=== PATIENT | male | born 1935 | race Caucasian/White ===

== ENCOUNTER 2020-04-15 09:51 | Emergency (ER) | payer MEDICARE, MEDICAID ==
[~2020-04-15] VITALS: Ht 172.7 cm; Wt 91.0 kg
[~2020-04-15 09:51] MED LIST: ASPI-1158 PO; ATOR10TA69 PO; BRIM.2 BOTHEYE; DOCU-150 PO; DORZ10DR12 BOTHEYE; FERR-63 PO; INSLAN SQ; TAMS0.4C31 PO; TOPUD PO
[2020-04-15] MEDS ORDERED: ACETAMINOPHEN 325MG TABLET PO STA (10:03)
[2020-04-15] MEDS ORDERED: ASPIRIN 81MG TABLET PO ONE (10:15)
[2020-04-15] MEDS ORDERED: NITROGLYCERIN 0.4MG TABLET SL SL PRN (10:15)
[2020-04-15 10:42] LABS: CHLORIDE 104 mEq/L (98-107)
[2020-04-15 10:44] LABS: BASOPHILS % 0.6 % (0.0-2.0); EOSINOPHILS % 0.5 % (0.0-5.0); HEMATOCRIT. 38.9 % (42.0-52.0); HEMOGLOBIN. 13.1 g/dL (14.0-18.0); LYMPHOCYTES % 17.2 % (20.0-50.0); MEAN CORPUSCULAR HEMOGLOBIN 31.1 pg (28.0-32.0); MEAN CORPUSCULAR VOLUME 92.6 fL (80.0-94.0); MEAN PLATELET VOLUME 8.7 fl (7.4-10.4); MONOCYTES % 5.4 % (2.0-8.0); NEUTROPHILS % 76.3 % (40.0-76.0); PLATELET 225 x1000/uL (130-400)
[2020-04-15 10:45] LABS: PROTHROMBIN TIME 10.7 sec (9.6-11.0)
[2020-04-15 14:30] VITALS: BP 169/76
== END 2020-04-15 14:45 | disposition home or self-care (01) ==
LOC: ER 09:51
DX: R51.9 Headache, unspecified (principal); E11.9 Type 2 diabetes mellitus without complications; E78.00 Pure hypercholesterolemia, unspecified; I10 Essential (primary) hypertension; Z79.82 Long term (current) use of aspirin; Z79.4 Long term (current) use of insulin; Z89.511 Acquired absence of right leg below knee; W01.190A Fall on same level from slipping, tripping and stumbling with subsequent striking against furniture, initial encounter; Y93.89 Activity, other specified; Y92.013 Bedroom of single-family (private) house as the place of occurrence of the external cause
CPT/HCPCS: 36415; 71045; 80053; 83880; 84484; 85025; 93005; 99285

== ENCOUNTER 2020-09-14 15:42 | Inpatient (IN) | payer MEDICARE, MEDICAID ==
[~2020-09-14] VITALS: Ht 172.7 cm; Wt 99.8 kg
[~2020-09-14 15:42] MED LIST changes: -ASPI-1158 PO; +ASPI-1406 PO
[2020-09-14 18:23] LABS: BASOPHILS % 0.5 % (0.0-2.0); EOSINOPHILS % 0.3 % (0.0-5.0); HEMATOCRIT. 32.8 % (42.0-52.0); HEMOGLOBIN. 11.1 g/dL (14.0-18.0); LYMPHOCYTES % 25.2 % (20.0-50.0); MEAN CORPUSCULAR HEMOGLOBIN 31.1 pg (28.0-32.0); MEAN CORPUSCULAR VOLUME 91.7 fL (80.0-94.0); MEAN PLATELET VOLUME 7.3 fl (7.4-10.4); MONOCYTES % 7.4 % (2.0-8.0); NEUTROPHILS % 66.6 % (40.0-76.0); PLATELET 392 x1000/uL (130-400); RED BLOOD CELL COUNT 3.57 mill/uL (4.7-6.1); RED CELL DISTRIBUTION WIDTH 13.8 % (11.6-14.6)
[2020-09-14 18:29] LABS: CHLORIDE 106 mEq/L (98-107)
[2020-09-14] MEDS ORDERED: PIPERACILLIN SODIUM/TAZOBACTAM 4.5 G in DEXT 5% WATER 100 ML IV SCH (19:00)
[2020-09-14 22:10] VITALS: BP 181/90
[2020-09-14 22:20] VITALS: BP 181/90
[2020-09-14] MEDS ORDERED: TRAMADOL 50MG TABLET PO PRN (23:15)
[2020-09-14] MEDS ORDERED: DEXTROSE 50% WATER 50ML SYRINGE IV PRN (23:15)
[2020-09-14] MEDS ORDERED: INSULIN GLARGINE UD 100 UNITS/ML SYR SUBCUT SCH (23:30)
[2020-09-15] MEDS: AMLODIPINE 10MG TABLET PO SCH ×2 (00:21→11:00)
[2020-09-15] MEDS: TAMSULOSIN HCL 0.4MG SR CAPSULE PO SCH ×2 (00:22→10:59)
[2020-09-15] MEDS: LOSARTAN POTASSIUM 50 MG TABLET PO SCH ×2 (00:22→10:59)
[2020-09-15] MEDS: DOCUSATE SODIUM SUGAR FREE 100MG/10ML UDC PO SCH ×2 (00:23→10:59)
[2020-09-15] MEDS: INSULIN LISPRO 100 UNITS/ML SUBCUT SCH ×4 (01:10→20:41)
[2020-09-15 04:00] VITALS: BP 151/71
[2020-09-15] MEDS ORDERED: PIPERACILLIN/TAZOBACTAM 3.375 G in DEXT 5% WATER 50 ML IV SCH (04:00)
[2020-09-15] MEDS ORDERED: PIPERACILLIN/TAZOBACTAM 3.375GM/50ML PREMIX IV ONE (06:00)
[2020-09-15] MEDS: BLOOD SUGAR DIAGNOSTIC STRIP TEST SCH ×4 (06:39→20:25)
[2020-09-15 08:00] VITALS: BP 138/67
[2020-09-15] MEDS ORDERED: BRIMONIDINE 0.2% OPHTH DROPS 5ML BOTHEYE ONE (09:00)
[2020-09-15] MEDS: TIMOLOL MALEATE 0.25% OPHTH DROPS 5ML EACHEYE SCH (11:06)
[2020-09-15 12:00] VITALS: BP 103/58
[2020-09-15] MEDS: PIPERACILLIN/TAZOBACTAM 3.375 G in DEXT 5% WATER 100 ML IV SCH ×3 (12:41→23:33)
[2020-09-15 16:00] VITALS: BP 149/66
[2020-09-15 20:00] VITALS: BP 133/57
[2020-09-15] MEDS: ATORVASTATIN CALCIUM 20MG TABLET PO SCH (20:25)
[2020-09-15] MEDS ORDERED: IOHEXOL-350 100 ML BOTTLE ONE (20:53)
[2020-09-15] MEDS: INSULIN GLARGINE UD 100 UNITS/ML SYR SUBCUT SCH (23:38)
[2020-09-16] VITALS: BP 151/69
[2020-09-16 04:00] VITALS: BP 156/72
[2020-09-16] MEDS: PIPERACILLIN/TAZOBACTAM 3.375 G in DEXT 5% WATER 100 ML IV SCH ×3 (06:00→18:01)
[2020-09-16] MEDS: BLOOD SUGAR DIAGNOSTIC STRIP TEST SCH ×2 (06:29→21:00)
[2020-09-16] MEDS ORDERED: HEPARIN SODIUM 1,000 UNIT/1ML VIAL IV ONE (07:26)
[2020-09-16 08:00] VITALS: BP 141/67
[2020-09-16] MEDS ORDERED: LIDOCAINE HCL 1% 20ML VIAL (Pyxis) INJ ONE ×2 (09:44→14:07)
[2020-09-16] MEDS ORDERED: IOHEXOL-300 100 ML BOTTLE ONE ×2 (09:44→11:16)
[2020-09-16] MEDS ORDERED: IODIXANOL 320MG/ML 100 ML BOTTLE IV ONE ×2 (09:45→11:17)
[2020-09-16] MEDS ORDERED: MIDAZOLAM HCL 2 MG/2 ML VIAL ONE (09:59)
[2020-09-16] MEDS ORDERED: FENTANYL CITRATE/PF 50MCG/ML 2ML VIAL ONE (09:59)
[2020-09-16 12:00] VITALS: BP 144/69
[2020-09-16 16:00] VITALS: BP 150/75
[2020-09-16 20:00] VITALS: BP 143/70
[2020-09-16] MEDS: ATORVASTATIN CALCIUM 20MG TABLET PO SCH (22:49)
[2020-09-16] MEDS: ENOXAPARIN 100MG/ML SYR SUBCUT SCH ×2 (22:49→22:59)
[2020-09-16] MEDS: INSULIN LISPRO 100 UNITS/ML SUBCUT SCH (22:54)
[2020-09-16] MEDS: INSULIN GLARGINE UD 100 UNITS/ML SYR SUBCUT SCH (22:54)
[2020-09-17] VITALS: BP 152/68
[2020-09-17] MEDS: PIPERACILLIN/TAZOBACTAM 3.375 G in DEXT 5% WATER 100 ML IV SCH ×4 (00:15→23:12)
[2020-09-17 04:00] VITALS: BP 137/68
[2020-09-17] MEDS: BLOOD SUGAR DIAGNOSTIC STRIP TEST SCH ×3 (06:36→21:00)
[2020-09-17 06:54] LABS: INR 1.1; PROTHROMBIN TIME 11.9 sec (9.6-11.0)
[2020-09-17 07:07] LABS: BASOPHILS % 0.3 % (0.0-2.0); EOSINOPHILS % 0.6 % (0.0-5.0); HEMATOCRIT. 29.4 % (42.0-52.0); LYMPHOCYTES % 24.4 % (20.0-50.0); MEAN CORPUSCULAR HEMOGLOBIN 30.7 pg (28.0-32.0); MEAN CORPUSCULAR VOLUME 90.6 fL (80.0-94.0); MEAN PLATELET VOLUME 7.7 fl (7.4-10.4); NEUTROPHILS % 63.7 % (40.0-76.0); PLATELET 394 x1000/uL (130-400); RED BLOOD CELL COUNT 3.25 mill/uL (4.7-6.1); RED CELL DISTRIBUTION WIDTH 14.1 % (11.6-14.6)
[2020-09-17] MEDS ORDERED: SODIUM CHLORIDE 0.45% 1,000 ML IV SCH (07:15)
[2020-09-17] MEDS: INSULIN LISPRO 100 UNITS/ML SUBCUT SCH ×3 (07:50→21:00)
[2020-09-17 07:53] LABS: CHLORIDE 108 mEq/L (98-107)
[2020-09-17 08:00] VITALS: BP 166/78
[2020-09-17] MEDS: ENOXAPARIN 100MG/ML SYR SUBCUT SCH ×2 (09:00→23:00)
[2020-09-17] MEDS ORDERED: POTASSIUM CHLORIDE 20MEQ TABLET SR PO SCH (09:30)
[2020-09-17] MEDS: LOSARTAN POTASSIUM 50 MG TABLET PO SCH (09:45)
[2020-09-17] MEDS: AMLODIPINE 10MG TABLET PO SCH (09:46)
[2020-09-17] MEDS: TAMSULOSIN HCL 0.4MG SR CAPSULE PO SCH (09:47)
[2020-09-17] MEDS: DOCUSATE SODIUM SUGAR FREE 100MG/10ML UDC PO SCH (09:48)
[2020-09-17] MEDS: TIMOLOL MALEATE 0.25% OPHTH DROPS 5ML EACHEYE SCH (09:51)
[2020-09-17] MEDS ORDERED: KCL 20MEQ/100ML PREMIX 100 ML IV SCH (10:00)
[2020-09-17] MEDS: DEXT 5%/0.45% NACL 1000ML 1,000 ML IV SCH (10:42)
[2020-09-17] MEDS ORDERED: GENTAMICIN SULF 40MG/ML 2ML VIAL ONE (12:44)
[2020-09-17] MEDS ORDERED: LIDOCAINE HCL 1% 20ML VIAL (Pyxis) INJ ONE (12:44)
[2020-09-17] MEDS ORDERED: POLYMYXIN B SULFATE 500000 UNITS/VIAL ONE (12:45)
[2020-09-17] MEDS ORDERED: BUPIVACAINE HCL/PF 0.5% (5MG/ML) 10ML ONE (12:45)
[2020-09-17] MEDS ORDERED: DESMOPRESSIN ACETATE 4MCG/ML AMP ONE (12:45)
[2020-09-17 14:28] LABS: BASOPHILS % 0.4 % (0.0-2.0); EOSINOPHILS % 0.9 % (0.0-5.0); HEMOGLOBIN. 10.3 g/dL (14.0-18.0); LYMPHOCYTES % 23.5 % (20.0-50.0); MEAN CORPUSCULAR HEMOGLOBIN 31.4 pg (28.0-32.0); MEAN CORPUSCULAR VOLUME 91.1 fL (80.0-94.0); MEAN PLATELET VOLUME 7.5 fl (7.4-10.4); MONOCYTES % 10.1 % (2.0-8.0); NEUTROPHILS % 65.1 % (40.0-76.0); PLATELET 370 x1000/uL (130-400); RED BLOOD CELL COUNT 3.29 mill/uL (4.7-6.1); RED CELL DISTRIBUTION WIDTH 13.9 % (11.6-14.6)
[2020-09-17 14:37] LABS: CHLORIDE 108 mEq/L (98-107)
[2020-09-17] MEDS ORDERED: MIDAZOLAM HCL 2 MG/2 ML VIAL ONE (15:28)
[2020-09-17] MEDS ORDERED: HYDROMORPHONE HCL/PF 2MG/ML (OR) ONE (15:28)
[2020-09-17] MEDS ORDERED: MEPERIDINE HCL/PF 25MG/ML CPJ IV PRN (15:30)
[2020-09-17] MEDS ORDERED: LABETALOL 5MG/ML SYR 20 MG/4 ML SYRINGE IV PRN (15:30)
[2020-09-17] MEDS ORDERED: HYDROMORPHONE HCL/PF 2MG/ML CPJ IV PRN (15:30)
[2020-09-17] MEDS ORDERED: ONDANSETRON HCL 4MG/2ML INJ IV PRN (15:30)
[2020-09-17] MEDS ORDERED: BACITRACIN 15GM TUBE TOP ONE (16:08)
[2020-09-17 18:16] LABS: BASOPHILS % 0.4 % (0.0-2.0); EOSINOPHILS % 1.1 % (0.0-5.0); HEMATOCRIT. 27.8 % (42.0-52.0); HEMOGLOBIN. 9.3 g/dL (14.0-18.0); LYMPHOCYTES % 25.7 % (20.0-50.0); MEAN CORPUSCULAR HEMOGLOBIN 30.7 pg (28.0-32.0); MEAN CORPUSCULAR VOLUME 91.7 fL (80.0-94.0); MEAN PLATELET VOLUME 7.4 fl (7.4-10.4); NEUTROPHILS % 62.8 % (40.0-76.0); PLATELET 364 x1000/uL (130-400); RED BLOOD CELL COUNT 3.03 mill/uL (4.7-6.1)
[2020-09-17 18:31] LABS: CHLORIDE 110 mEq/L (98-107)
[2020-09-17] MEDS ORDERED: MAGNESIUM 2 G PREMIX 50 ML IV NR (20:00)
[2020-09-17] MEDS: ATORVASTATIN CALCIUM 20MG TABLET PO SCH (21:00)
[2020-09-17 22:45] VITALS: BP 122/59
[2020-09-17] MEDS: INSULIN GLARGINE UD 100 UNITS/ML SYR SUBCUT SCH (23:00)
[2020-09-18] VITALS: BP 124/61
[2020-09-18] MEDS ORDERED: CEFTRIAXONE 2 G in DEXTROSE 5% WATER 50 ML IV SCH (01:00)
[2020-09-18 04:00] VITALS: BP 122/58
[2020-09-18] MEDS: BLOOD SUGAR DIAGNOSTIC STRIP TEST SCH ×3 (05:37→17:10)
[2020-09-18] MEDS: DEXT 5%/0.45% NACL 1000ML 1,000 ML IV SCH (06:34)
[2020-09-18] MEDS: INSULIN LISPRO 100 UNITS/ML SUBCUT SCH ×3 (06:37→17:40)
[2020-09-18 08:00] VITALS: BP 106/58
[2020-09-18] MEDS: AMLODIPINE 10MG TABLET PO SCH (09:00)
[2020-09-18] MEDS: LOSARTAN POTASSIUM 50 MG TABLET PO SCH (09:00)
[2020-09-18] MEDS: TAMSULOSIN HCL 0.4MG SR CAPSULE PO SCH (09:43)
[2020-09-18] MEDS: DOCUSATE SODIUM SUGAR FREE 100MG/10ML UDC PO SCH (09:43)
[2020-09-18] MEDS: TIMOLOL MALEATE 0.25% OPHTH DROPS 5ML EACHEYE SCH (09:44)
[2020-09-18 12:00] VITALS: BP 107/53
[2020-09-18 16:00] VITALS: BP 149/70
== END 2020-09-18 20:30 | disposition home health service (06) | DRG 314 ==
LOC: ER 15:42 → 6EST 19:48 → EDBEDREQTM 19:54 → EDBEDREQ 19:54 → ENRESERV 21:01 → 8WST 09-17 22:29
PROVIDERS: ADMIT Internal Medicine; ATTEND Internal Medicine
PROC: 047L3ZZ Dilation of Left Femoral Artery, Percutaneous Approach (ICD-10-PCS; principal; 2020-09-16)
PROC: B41G1ZZ Fluoroscopy of Left Lower Extremity Arteries using Low Osmolar Contrast (ICD-10-PCS; 2020-09-16)
PROC: B41F1ZZ Fluoroscopy of Right Lower Extremity Arteries using Low Osmolar Contrast (ICD-10-PCS; 2020-09-16)
PROC: 04CQ3ZZ Extirpation of Matter from Left Anterior Tibial Artery, Percutaneous Approach (ICD-10-PCS; 2020-09-16)
PROC: 02HV33Z Insertion of Infusion Device into Superior Vena Cava, Percutaneous Approach (ICD-10-PCS; 2020-09-16)
PROC: B548ZZA Ultrasonography of Superior Vena Cava, Guidance (ICD-10-PCS; 2020-09-16)
PROC: 0QBM0ZZ Excision of Left Tarsal, Open Approach (ICD-10-PCS; 2020-09-17)
DX: E11.621 Type 2 diabetes mellitus with foot ulcer (principal); M86.172 Other acute osteomyelitis, left ankle and foot; E46 Unspecified protein-calorie malnutrition; I82.401 Acute embolism and thrombosis of unspecified deep veins of right lower extremity; E11.52 Type 2 diabetes mellitus with diabetic peripheral angiopathy with gangrene; E11.40 Type 2 diabetes mellitus with diabetic neuropathy, unspecified; I48.91 Unspecified atrial fibrillation; I70.92 Chronic total occlusion of artery of the extremities; L97.429 Non-pressure chronic ulcer of left heel and midfoot with unspecified severity; I10 Essential (primary) hypertension; E66.9 Obesity, unspecified; N21.0 Calculus in bladder; N40.0 Benign prostatic hyperplasia without lower urinary tract symptoms; D64.9 Anemia, unspecified; E11.69 Type 2 diabetes mellitus with other specified complication; I25.10 Atherosclerotic heart disease of native coronary artery without angina pectoris; M19.90 Unspecified osteoarthritis, unspecified site; E87.6 Hypokalemia; Z20.822 Contact with and (suspected) exposure to COVID-19; F03.90 Unspecified dementia, unspecified severity, without behavioral disturbance, psychotic disturbance, mood disturbance, and anxiety; L02.612 Cutaneous abscess of left foot; Z86.73 Personal history of transient ischemic attack (TIA), and cerebral infarction without residual deficits; Z68.33 Body mass index [BMI] 33.0-33.9, adult; Z89.511 Acquired absence of right leg below knee; Z99.3 Dependence on wheelchair; Z79.01 Long term (current) use of anticoagulants
CPT/HCPCS: 36415; 37229; 71045; 73630; 73721; 75635; 76937; 80048; 80053; 82962; 83036; 83735; 85025; 85347; 87070; 87075; 87077; 87186; 87426; 93005; 93922; 93970; 97022; 97162; 99291; C1725; C1769; J0696; J1170; J1580; J1644; J1650; J1815; J2250; J2543; J2597; J3010; J3475; J3480; J3490; J7040; J7060; Q9967

== ENCOUNTER 2020-10-15 12:48 | Inpatient (IN) | payer MEDICARE, MEDICAID ==
[~2020-10-15] VITALS: Ht 172.7 cm; Wt 97.1 kg
[2020-10-15 14:17] LABS: BASOPHILS % 0.6 % (0.0-2.0); EOSINOPHILS % 1.7 % (0.0-5.0); HEMATOCRIT. 34.9 % (42.0-52.0); HEMOGLOBIN. 11.7 g/dL (14.0-18.0); LYMPHOCYTES % 35.3 % (20.0-50.0); MEAN CORPUSCULAR HEMOGLOBIN 31.7 pg (28.0-32.0); MEAN CORPUSCULAR VOLUME 94.1 fL (80.0-94.0); MEAN PLATELET VOLUME 8.6 fl (7.4-10.4); MONOCYTES % 6.8 % (2.0-8.0); NEUTROPHILS % 55.6 % (40.0-76.0); PLATELET 259 x1000/uL (130-400); RED BLOOD CELL COUNT 3.71 mill/uL (4.7-6.1); RED CELL DISTRIBUTION WIDTH 16.9 % (11.6-14.6)
[2020-10-15 14:25] LABS: CHLORIDE 105 mEq/L (98-107)
[2020-10-15 14:26] LABS: PROTHROMBIN TIME 10.4 sec (9.6-11.0)
[2020-10-15] MEDS ORDERED: VANCOMYCIN 1 G PREMIX 200 ML IV ONE (14:30)
[2020-10-15] MEDS ORDERED: PIPERACILLIN/TAZ 3.375G PREMIX 50 ML IV ONE (14:30)
[2020-10-15] MEDS ORDERED: HYDROCODONE/ACETAMINOPHEN 10/325MG TABLET PO PRN (17:15)
[2020-10-15] MEDS ORDERED: DOCUSATE SODIUM 100MG CAPSULE PO PRN (17:15)
[2020-10-15] MEDS ORDERED: ACETAMINOPHEN 325MG TABLET PO PRN (17:15)
[2020-10-15] MEDS ORDERED: HYDROCODONE/ACETAMINOPHEN 5/325MG TABLET PO PRN (17:15)
[2020-10-15] MEDS ORDERED: ONDANSETRON HCL 4MG/2ML INJ IV PRN (17:15)
[2020-10-15] MEDS: LORAZEPAM 0.5MG TABLET PO PRN (19:54)
[2020-10-15 22:00] VITALS: BP 187/102
[2020-10-15] MEDS: PIPERACILLIN/TAZOBACTAM 3.375 G in DEXT 5% WATER 100 ML IV SCH (22:00)
[2020-10-15] MEDS ORDERED: PIPERACILLIN/TAZOBACTAM 3.375 G/VIAL IV SCH (22:00)
[2020-10-15] MEDS: CLONIDINE 0.1MG TABLET PO PRN (22:35)
[2020-10-15] MEDS ORDERED: PNEUMOCOCCAL 23-VAL P-SAC VAC 0.5 ML IM ONE (23:45)
[2020-10-16] VITALS: BP 175/89
[2020-10-16] MEDS: LORAZEPAM 0.5MG TABLET PO PRN ×2 (00:32→04:38)
[2020-10-16 04:00] VITALS: BP 172/96
[2020-10-16] MEDS: CLONIDINE 0.1MG TABLET PO PRN (04:38)
[2020-10-16] MEDS: PIPERACILLIN/TAZOBACTAM 3.375 G in DEXT 5% WATER 100 ML IV SCH ×4 (06:07→23:30)
[2020-10-16] MEDS: BLOOD SUGAR DIAGNOSTIC STRIP TEST SCH ×4 (06:31→20:32)
[2020-10-16 07:06] LABS: BASOPHILS % 0.5 % (0.0-2.0); EOSINOPHILS % 0.1 % (0.0-5.0); HEMATOCRIT. 33.5 % (42.0-52.0); HEMOGLOBIN. 11.3 g/dL (14.0-18.0); LYMPHOCYTES % 20.8 % (20.0-50.0); MEAN CORPUSCULAR HEMOGLOBIN 31.5 pg (28.0-32.0); MEAN CORPUSCULAR VOLUME 93.2 fL (80.0-94.0); MEAN PLATELET VOLUME 8.4 fl (7.4-10.4); MONOCYTES % 4.8 % (2.0-8.0); NEUTROPHILS % 73.8 % (40.0-76.0); PLATELET 268 x1000/uL (130-400); RED CELL DISTRIBUTION WIDTH 16.2 % (11.6-14.6)
[2020-10-16 07:15] LABS: CHLORIDE 103 mEq/L (98-107)
[2020-10-16] MEDS: INSULIN LISPRO 100 UNITS/ML SUBCUT SCH ×4 (07:50→21:42)
[2020-10-16 08:00] VITALS: BP 125/74
[2020-10-16] MEDS ORDERED: HEPARIN 25,000 UNITS PREMIX 250 ML IV SCH (10:15)
[2020-10-16] MEDS ORDERED: BRIMONIDINE 0.2% OPHTH DROPS 5ML BOTHEYE SCH (11:30)
[2020-10-16] MEDS ORDERED: BACITRACIN 15GM TUBE TOP ONE (11:41)
[2020-10-16] MEDS ORDERED: THROMBIN (BOVINE) 5000 UNITS/VIAL TOP ONE (11:41)
[2020-10-16] MEDS ORDERED: LIDOCAINE HCL 1% 20ML VIAL (Pyxis) INJ ONE (11:41)
[2020-10-16] MEDS ORDERED: HEPARIN SODIUM 1,000 UNIT/1ML VIAL IV ONE (11:42)
[2020-10-16] MEDS ORDERED: BUPIVACAINE HCL/PF 0.5% (5MG/ML) 10ML ONE (11:42)
[2020-10-16] MEDS ORDERED: POLYMYXIN B SULFATE 500000 UNITS/VIAL ONE (11:42)
[2020-10-16] MEDS ORDERED: AMLODIPINE 5MG TABLET PO SCH (12:00)
[2020-10-16] MEDS ORDERED: MORPHINE SULFATE 4 MG/ML CPJ (NOT FOR IM USE) IV PRN (12:00)
[2020-10-16] MEDS ORDERED: PROPOFOL 200MG/20ML VIAL IV ONE (12:12)
[2020-10-16] MEDS ORDERED: PHENYLEPHRINE HCL 10 MG/ML 1ML (IV VIAL) IV ONE (12:15)
[2020-10-16] MEDS ORDERED: SODIUM CHLORIDE 0.9% 10ML VIAL ONE ×2 (12:33→12:46)
[2020-10-16] MEDS ORDERED: HEPARIN 1000 UNITS/ML 10ML ONE (12:37)
[2020-10-16] MEDS ORDERED: FENTANYL CITRATE/PF 50MCG/ML 2ML VIAL ONE (12:38)
[2020-10-16] MEDS ORDERED: ONDANSETRON HCL 4MG/2ML INJ ONE (12:46)
[2020-10-16] MEDS ORDERED: HYDROMORPHONE HCL/PF 2MG/ML CPJ IV PRN (13:30)
[2020-10-16] MEDS ORDERED: EPHEDRINE SULFATE 50MG/ML VIAL ONE ×2 (13:37→13:40)
[2020-10-16] MEDS ORDERED: ALBUMIN HUMAN 12.5G/250ML (5%) IV ONE (13:41)
[2020-10-16] MEDS ORDERED: VANCOMYCIN 1500MG in DEXTROSE 5% WATER 250ML IV SCH (14:30)
[2020-10-16 16:00] VITALS: BP 136/71
[2020-10-16] MEDS: VANCOMYCIN 1 G PREMIX 200 ML IV SCH (16:05)
[2020-10-16] MEDS: DILTIAZEM HCL 60MG TABLET PO SCH ×2 (17:59→21:41)
[2020-10-16] MEDS: FERROUS SULFATE 325MG TABLET PO SCH (17:59)
[2020-10-16 20:00] VITALS: BP 142/70
[2020-10-16] MEDS: BRIMONIDINE 0.2% OPHTH DROPS 5ML BOTHEYE SCH (20:04)
[2020-10-16] MEDS: ATORVASTATIN CALCIUM 10MG TABLET PO SCH (20:05)
[2020-10-16] MEDS: DORZOLAM/TIMOLOL 2.23/0.68% OPHTH DROPS 10ML BOTHEYE SCH (20:05)
[2020-10-16] MEDS: INSULIN GLARGINE UD 100 UNITS/ML SYR SUBCUT SCH (21:42)
[2020-10-17] VITALS: BP 140/74
[2020-10-17 04:00] VITALS: BP 172/74
[2020-10-17] MEDS: CLONIDINE 0.1MG TABLET PO PRN (04:52)
[2020-10-17] MEDS: VANCOMYCIN 1 G PREMIX 200 ML IV SCH (05:00)
[2020-10-17 05:30] LABS: CHLORIDE 107 mEq/L (98-107)
[2020-10-17] MEDS: PIPERACILLIN/TAZOBACTAM 3.375 G in DEXT 5% WATER 100 ML IV SCH ×3 (05:56→17:36)
[2020-10-17] MEDS: DILTIAZEM HCL 60MG TABLET PO SCH ×3 (05:58→22:37)
[2020-10-17 06:49] LABS: BASOPHILS % 0.3 % (0.0-2.0); EOSINOPHILS % 0.4 % (0.0-5.0); HEMATOCRIT. 34.2 % (42.0-52.0); HEMOGLOBIN. 11.4 g/dL (14.0-18.0); LYMPHOCYTES % 18.4 % (20.0-50.0); MEAN CORPUSCULAR HEMOGLOBIN 32.2 pg (28.0-32.0); MEAN CORPUSCULAR VOLUME 96.8 fL (80.0-94.0); MEAN PLATELET VOLUME 8.7 fl (7.4-10.4); MONOCYTES % 7.9 % (2.0-8.0); PLATELET 232 x1000/uL (130-400); RED BLOOD CELL COUNT 3.53 mill/uL (4.7-6.1); RED CELL DISTRIBUTION WIDTH 16.8 % (11.6-14.6)
[2020-10-17] MEDS: BLOOD SUGAR DIAGNOSTIC STRIP TEST SCH ×4 (07:24→20:32)
[2020-10-17] MEDS: INSULIN LISPRO 100 UNITS/ML SUBCUT SCH ×4 (07:50→22:54)
[2020-10-17 08:00] VITALS: BP 161/79
[2020-10-17] MEDS ORDERED: DORZOLAM/TIMOLOL 2.23/0.68% OPHTH DROPS 10ML BOTHEYE SCH (09:00)
[2020-10-17] MEDS: FERROUS SULFATE 325MG TABLET PO SCH ×2 (09:12→17:36)
[2020-10-17] MEDS: TAMSULOSIN HCL 0.4MG SR CAPSULE PO SCH (09:13)
[2020-10-17] MEDS: BRIMONIDINE 0.2% OPHTH DROPS 5ML BOTHEYE SCH ×2 (09:13→22:37)
[2020-10-17] MEDS: DORZOLAM/TIMOLOL 2.23/0.68% OPHTH DROPS 10ML BOTHEYE SCH ×2 (09:13→22:37)
[2020-10-17 12:00] VITALS: BP 162/75
[2020-10-17 16:00] VITALS: BP 187/87
[2020-10-17 20:00] VITALS: BP 163/80
[2020-10-17] MEDS: ATORVASTATIN CALCIUM 10MG TABLET PO SCH (22:37)
[2020-10-17] MEDS: INSULIN GLARGINE UD 100 UNITS/ML SYR SUBCUT SCH (22:54)
[2020-10-18] VITALS (48 sets, daily range): BP systolic 78–172; BP diastolic 47–88
[2020-10-18] MEDS: VANCOMYCIN 1 G PREMIX 200 ML IV SCH ×2 (00:47→17:55)
[2020-10-18] MEDS: PIPERACILLIN/TAZOBACTAM 3.375 G in DEXT 5% WATER 100 ML IV SCH ×4 (01:33→17:55)
[2020-10-18] MEDS: CLONIDINE 0.1MG TABLET PO PRN (02:08)
[2020-10-18] MEDS: BLOOD SUGAR DIAGNOSTIC STRIP TEST SCH ×4 (06:05→21:04)
[2020-10-18] MEDS: DILTIAZEM HCL 60MG TABLET PO SCH ×3 (07:01→22:00)
[2020-10-18] MEDS ORDERED: SUCCINYLCHOLINE CHLORIDE 200MG/10ML IV ONE (07:39)
[2020-10-18] MEDS ORDERED: ETOMIDATE 2MG/ML 10ML VIAL IV ONE (07:39)
[2020-10-18] MEDS: INSULIN LISPRO 100 UNITS/ML SUBCUT SCH ×3 (07:50→21:03)
[2020-10-18] MEDS ORDERED: EPINEPHRINE 0.1MG/ML (1:10,000) 10ML SYR ONE (08:18)
[2020-10-18] MEDS ORDERED: ATROPINE SULFATE 1MG/10ML SYR ONE (08:18)
[2020-10-18 08:55] LABS: CHLORIDE 104 mEq/L (98-107)
[2020-10-18] MEDS: DORZOLAM/TIMOLOL 2.23/0.68% OPHTH DROPS 10ML BOTHEYE SCH ×2 (09:59→21:04)
[2020-10-18] MEDS: BRIMONIDINE 0.2% OPHTH DROPS 5ML BOTHEYE SCH ×2 (09:59→21:04)
[2020-10-18] MEDS: FERROUS SULFATE 325MG TABLET PO SCH ×2 (10:00→17:56)
[2020-10-18] MEDS: TAMSULOSIN HCL 0.4MG SR CAPSULE PO SCH (10:00)
[2020-10-18] MEDS ORDERED: VANCOMYCIN 1 G PREMIX 200 ML IV SCH (13:00)
[2020-10-18 13:11] LABS: BG CARBOXYHEMOGLOBIN 0.3 % (0.5-1.5); BG DEOXYHEMOGLOBIN 14.5 % (0.0-5.0); BG FRACTION INSPIRED OXYGEN 100; BG HCO3 ACT 21.9 mmol/L (22.0-26.0); BG METHEMOGLOBIN 0.3 % (0.0-1.5); BG OXYGEN SATURATION 85.4 % (92.0-98.5); BG OXYHEMOGLOBIN 84.9 % (94.0-97.0); BG PCO2 34.2 mmHg (35.0-45.0); BG PH 7.424 (7.350-7.450); BG PO2 48.8 mmHg (75.0-100.0); BG SAMPLE SITE RIGHT BRACHIAL; BG TOTAL HEMOGLOBIN 10.6 g/dL (12.0-18.0); BG VENT MODE MASK - NRB
[2020-10-18] MEDS: NOREPINEPHRINE 32 MG in DEXT 5% WATER 218 ML IV PRN (13:15)
[2020-10-18 14:28] LABS: BG BASE EXCESS -5.1 mmol/L (-2.0-2.0); BG DEOXYHEMOGLOBIN 7.8 % (0.0-5.0); BG FRACTION INSPIRED OXYGEN 100; BG OXYGEN SATURATION 92.2 % (92.0-98.5); BG OXYHEMOGLOBIN 92.2 % (94.0-97.0); BG PH 7.306 (7.350-7.450); BG PO2 70.7 mmHg (75.0-100.0); BG SAMPLE SITE RIGHT RADIAL; BG TOTAL HEMOGLOBIN 11.8 g/dL (12.0-18.0); BG VENT MODE VENT - AC
[2020-10-18] MEDS: PROPOFOL 10MG/ML 100ML 100 ML IV PRN ×2 (14:33→21:04)
[2020-10-18] MEDS: IPRATROPIUM/ALBUTEROL 0.5-3(2.5)MG/3ML NEB HHN PRN ×2 (16:26→20:04)
[2020-10-18] MEDS: SODIUM CHLORIDE 0.9% 1,000 ML IV SCH (17:56)
[2020-10-18] MEDS: ATORVASTATIN CALCIUM 10MG TABLET PO SCH (21:00)
[2020-10-18] MEDS: INSULIN GLARGINE UD 100 UNITS/ML SYR SUBCUT SCH (22:46)
[2020-10-19] VITALS (94 sets, daily range): BP systolic 70–174; BP diastolic 33–101
[2020-10-19] MEDS: PIPERACILLIN/TAZOBACTAM 3.375 G in DEXT 5% WATER 100 ML IV SCH ×4 (00:01→17:36)
[2020-10-19] MEDS: SODIUM CHLORIDE 0.9% 1,000 ML IV SCH ×3 (00:03→23:00)
[2020-10-19 04:48] LABS: BASOPHILS % 0.1 % (0.0-2.0); HEMATOCRIT. 31.7 % (42.0-52.0); HEMOGLOBIN. 10.8 g/dL (14.0-18.0); LYMPHOCYTES % 12.8 % (20.0-50.0); MEAN CORPUSCULAR HEMOGLOBIN 31.9 pg (28.0-32.0); MEAN CORPUSCULAR VOLUME 93.7 fL (80.0-94.0); MEAN PLATELET VOLUME 8.4 fl (7.4-10.4); NEUTROPHILS % 82.1 % (40.0-76.0); PLATELET 232 x1000/uL (130-400); RED BLOOD CELL COUNT 3.38 mill/uL (4.7-6.1); RED CELL DISTRIBUTION WIDTH 16.5 % (11.6-14.6)
[2020-10-19] MEDS: BLOOD SUGAR DIAGNOSTIC STRIP TEST SCH ×3 (05:49→17:31)
[2020-10-19] MEDS: INSULIN LISPRO 100 UNITS/ML SUBCUT SCH ×3 (05:49→17:31)
[2020-10-19] MEDS: DILTIAZEM HCL 60MG TABLET PO SCH ×3 (05:49→23:00)
[2020-10-19] MEDS: VANCOMYCIN 1 G PREMIX 200 ML IV SCH ×2 (05:51→17:36)
[2020-10-19] MEDS: FERROUS SULFATE 325MG TABLET PO SCH ×2 (07:00→17:36)
[2020-10-19] MEDS: IPRATROPIUM/ALBUTEROL 0.5-3(2.5)MG/3ML NEB HHN PRN ×2 (08:36→12:56)
[2020-10-19] MEDS: BRIMONIDINE 0.2% OPHTH DROPS 5ML BOTHEYE SCH ×2 (09:03→22:59)
[2020-10-19] MEDS: TAMSULOSIN HCL 0.4MG SR CAPSULE PO SCH (09:03)
[2020-10-19] MEDS: DORZOLAM/TIMOLOL 2.23/0.68% OPHTH DROPS 10ML BOTHEYE SCH ×2 (09:03→22:58)
[2020-10-19] MEDS: PROPOFOL 10MG/ML 100ML 100 ML IV PRN (10:09)
[2020-10-19] MEDS ORDERED: POTASSIUM CHLORIDE 20MEQ/PACKET PO NR (11:30)
[2020-10-19 12:13] LABS: BG BASE EXCESS -4.9 mmol/L (-2.0-2.0); BG CARBOXYHEMOGLOBIN 0.3 % (0.5-1.5); BG DEOXYHEMOGLOBIN 1.1 % (0.0-5.0); BG FRACTION INSPIRED OXYGEN 100; BG HCO3 ACT 19.1 mmol/L (22.0-26.0); BG METHEMOGLOBIN 0.8 % (0.0-1.5); BG OXYGEN SATURATION 98.9 % (92.0-98.5); BG OXYHEMOGLOBIN 97.8 % (94.0-97.0); BG PH 7.394 (7.350-7.450); BG PO2 181.1 mmHg (75.0-100.0); BG SAMPLE SITE RIGHT RADIAL; BG TOTAL HEMOGLOBIN 11.2 g/dL (12.0-18.0); BG VENT MODE VENT - AC
[2020-10-19] MEDS ORDERED: MAGNESIUM 4 G PREMIX 100 ML IV NR (12:30)
[2020-10-19] MEDS: ACETYLCYSTEINE 100MG/ML 10% VIAL 4ML INH SCH ×2 (12:56→23:52)
[2020-10-19] MEDS: IPRATROPIUM/ALBUTEROL 0.5-3(2.5)MG/3ML NEB HHN SCH ×2 (20:14→23:52)
[2020-10-19] MEDS: ATORVASTATIN CALCIUM 10MG TABLET PO SCH (22:58)
[2020-10-19] MEDS: INSULIN GLARGINE UD 100 UNITS/ML SYR SUBCUT SCH (23:01)
[2020-10-20] VITALS (103 sets, daily range): BP systolic 68–154; BP diastolic 43–79
[2020-10-20] MEDS: BLOOD SUGAR DIAGNOSTIC STRIP TEST SCH ×5 (00:27→23:06)
[2020-10-20] MEDS: PIPERACILLIN/TAZOBACTAM 3.375 G in DEXT 5% WATER 100 ML IV SCH ×3 (00:28→11:35)
[2020-10-20] MEDS ORDERED: PROPOFOL 10MG/ML 100ML 100 ML IV PRN (00:45)
[2020-10-20 05:51] LABS: BASOPHILS % 0.1 % (0.0-2.0); EOSINOPHILS % 0.4 % (0.0-5.0); HEMATOCRIT. 26.4 % (42.0-52.0); HEMOGLOBIN. 9.1 g/dL (14.0-18.0); LYMPHOCYTES % 13.8 % (20.0-50.0); MEAN CORPUSCULAR HEMOGLOBIN 32.1 pg (28.0-32.0); MEAN CORPUSCULAR VOLUME 93.2 fL (80.0-94.0); MEAN PLATELET VOLUME 8.6 fl (7.4-10.4); MONOCYTES % 5.7 % (2.0-8.0); PLATELET 174 x1000/uL (130-400); RED BLOOD CELL COUNT 2.84 mill/uL (4.7-6.1); RED CELL DISTRIBUTION WIDTH 16.7 % (11.6-14.6)
[2020-10-20] MEDS: INSULIN LISPRO 100 UNITS/ML SUBCUT SCH ×5 (06:00→23:10)
[2020-10-20] MEDS: VANCOMYCIN 1 G PREMIX 200 ML IV SCH (06:39)
[2020-10-20] MEDS: DILTIAZEM HCL 60MG TABLET PO SCH ×3 (06:40→21:02)
[2020-10-20] MEDS: DEXTROSE 50% WATER 50ML SYRINGE IV PRN (06:42)
[2020-10-20] MEDS: ACETYLCYSTEINE 100MG/ML 10% VIAL 4ML INH SCH ×2 (07:42→13:19)
[2020-10-20] MEDS: IPRATROPIUM/ALBUTEROL 0.5-3(2.5)MG/3ML NEB HHN SCH ×3 (07:42→20:38)
[2020-10-20 08:08] LABS: BG BASE EXCESS -6.5 mmol/L (-2.0-2.0); BG CARBOXYHEMOGLOBIN 0.3 % (0.5-1.5); BG DEOXYHEMOGLOBIN 0.5 % (0.0-5.0); BG FRACTION INSPIRED OXYGEN 80; BG HCO3 ACT 16.9 mmol/L (22.0-26.0); BG METHEMOGLOBIN 0.4 % (0.0-1.5); BG OXYGEN SATURATION 99.5 % (92.0-98.5); BG OXYHEMOGLOBIN 98.8 % (94.0-97.0); BG PCO2 27.1 mmHg (35.0-45.0); BG PH 7.414 (7.350-7.450); BG PO2 216.8 mmHg (75.0-100.0); BG SAMPLE SITE RIGHT RADIAL; BG TOTAL HEMOGLOBIN 9.7 g/dL (12.0-18.0); BG TOTAL RESPIRATORY RATE 24 b/min; BG VENT MODE VENT - AC
[2020-10-20] MEDS: SODIUM CHLORIDE 0.9% 1,000 ML IV SCH (08:29)
[2020-10-20] MEDS: FERROUS SULFATE 325MG TABLET PO SCH ×2 (08:31→17:50)
[2020-10-20] MEDS: TAMSULOSIN HCL 0.4MG SR CAPSULE PO SCH (08:37)
[2020-10-20] MEDS: NOREPINEPHRINE 32 MG in DEXT 5% WATER 218 ML IV PRN (08:38)
[2020-10-20] MEDS: DORZOLAM/TIMOLOL 2.23/0.68% OPHTH DROPS 10ML BOTHEYE SCH ×2 (08:39→21:02)
[2020-10-20] MEDS: BRIMONIDINE 0.2% OPHTH DROPS 5ML BOTHEYE SCH ×2 (08:40→21:02)
[2020-10-20] MEDS ORDERED: DEXT 5%/0.9% NACL 1,000 ML IV SCH (09:49)
[2020-10-20] MEDS: DEXT 5%/0.9% NACL 1,000 ML IV SCH (10:00)
[2020-10-20] MEDS ORDERED: POTASSIUM CHLORIDE INJ 40 MEQ in DEXT 5% WATER 250 ML IV NR (11:00)
[2020-10-20] MEDS: ENOXAPARIN 30MG/0.3ML SYR SUBCUT SCH (11:35)
[2020-10-20] MEDS: PIPERACILLIN/TAZOBACTAM 2.25 G in DEXTROSE 5% WATER 50 ML IV SCH ×2 (17:50→23:09)
[2020-10-20] MEDS: ATORVASTATIN CALCIUM 10MG TABLET PO SCH (21:02)
[2020-10-20] MEDS: PROPOFOL 10MG/ML 100ML 100 ML IV PRN (21:34)
[2020-10-20 21:49] LABS: T4 FREE 1.28 ng/dL (0.76-1.46)
[2020-10-20 22:00] LABS: FOLIC ACID (FOLATE) SERUM 5.5 ng/mL (>5.38)
[2020-10-20] MEDS: INSULIN GLARGINE UD 100 UNITS/ML SYR SUBCUT SCH (23:09)
[2020-10-21] VITALS (97 sets, daily range): BP systolic 65–165; BP diastolic 36–98
[2020-10-21] MEDS: DEXT 5%/0.9% NACL 1,000 ML IV SCH ×3 (01:11→16:13)
[2020-10-21] MEDS: ACETYLCYSTEINE 100MG/ML 10% VIAL 4ML INH SCH ×3 (02:12→15:33)
[2020-10-21] MEDS: IPRATROPIUM/ALBUTEROL 0.5-3(2.5)MG/3ML NEB HHN SCH ×4 (02:12→21:02)
[2020-10-21] MEDS: NOREPINEPHRINE 32 MG in DEXT 5% WATER 218 ML IV PRN (04:34)
[2020-10-21] MEDS: PIPERACILLIN/TAZOBACTAM 2.25 G in DEXTROSE 5% WATER 50 ML IV SCH ×4 (05:14→23:04)
[2020-10-21] MEDS: BLOOD SUGAR DIAGNOSTIC STRIP TEST SCH ×4 (05:21→23:05)
[2020-10-21 05:57] LABS: BASOPHILS % 0.1 % (0.0-2.0); EOSINOPHILS % 0.2 % (0.0-5.0); HEMATOCRIT. 25.5 % (42.0-52.0); HEMOGLOBIN. 8.9 g/dL (14.0-18.0); LYMPHOCYTES % 11.4 % (20.0-50.0); MEAN CORPUSCULAR HEMOGLOBIN 32.2 pg (28.0-32.0); MEAN CORPUSCULAR VOLUME 92.6 fL (80.0-94.0); MEAN PLATELET VOLUME 8.6 fl (7.4-10.4); MONOCYTES % 5.9 % (2.0-8.0); NEUTROPHILS % 82.4 % (40.0-76.0); PLATELET 193 x1000/uL (130-400); RED BLOOD CELL COUNT 2.75 mill/uL (4.7-6.1); RED CELL DISTRIBUTION WIDTH 16.7 % (11.6-14.6)
[2020-10-21] MEDS: FERROUS SULFATE 325MG TABLET PO SCH ×2 (06:00→17:06)
[2020-10-21] MEDS: DILTIAZEM HCL 60MG TABLET PO SCH ×3 (06:01→22:32)
[2020-10-21] MEDS: INSULIN LISPRO 100 UNITS/ML SUBCUT SCH ×4 (06:02→23:05)
[2020-10-21 09:28] LABS: BG BASE EXCESS -7.6 mmol/L (-2.0-2.0); BG CARBOXYHEMOGLOBIN 0.3 % (0.5-1.5); BG DEOXYHEMOGLOBIN 3.9 % (0.0-5.0); BG FRACTION INSPIRED OXYGEN 40; BG HCO3 ACT 16.1 mmol/L (22.0-26.0); BG METHEMOGLOBIN 0.3 % (0.0-1.5); BG OXYGEN SATURATION 96.1 % (92.0-98.5); BG OXYHEMOGLOBIN 95.5 % (94.0-97.0); BG PCO2 27.1 mmHg (35.0-45.0); BG PH 7.391 (7.350-7.450); BG PO2 82.6 mmHg (75.0-100.0); BG SAMPLE SITE RIGHT BRACHIAL; BG TOTAL HEMOGLOBIN 10.5 g/dL (12.0-18.0); BG VENT MODE VENT - AC
[2020-10-21] MEDS: DORZOLAM/TIMOLOL 2.23/0.68% OPHTH DROPS 10ML BOTHEYE SCH ×2 (09:36→20:50)
[2020-10-21] MEDS: BRIMONIDINE 0.2% OPHTH DROPS 5ML BOTHEYE SCH ×2 (09:36→20:50)
[2020-10-21] MEDS: PROPOFOL 10MG/ML 100ML 100 ML IV PRN ×2 (09:40→19:54)
[2020-10-21] MEDS: TAMSULOSIN HCL 0.4MG SR CAPSULE PO SCH (09:43)
[2020-10-21] MEDS ORDERED: POTASSIUM CHLORIDE INJ 40 MEQ in DEXT 5% WATER 250 ML IV NR (11:00)
[2020-10-21] MEDS: ENOXAPARIN 30MG/0.3ML SYR SUBCUT SCH (11:01)
[2020-10-21 12:40] LABS: CLARITY URINE CLEAR (CLEAR); COLOR URINE YELLOW (YELLOW); KETONES URINE NEGATIVE (NEGATIVE); LEUKOCYTE ESTERASE URINE NEGATIVE (NEGATIVE); NITRITE URINE NEGATIVE (NEGATIVE); OCCULT BLOOD URINE 2+ (NEGATIVE); PROTEIN URINE TRACE (NEGATIVE); SPECIFIC GRAVITY URINE 1.014 (1.005-1.030); UROBILINOGEN URINE 0.2 E.U./dL (0.2-1.0)
[2020-10-21 12:43] LABS: CREATINE KINASE 170 IU/L (39-308)
[2020-10-21] MEDS: LINEZOLID 600 MG PREMIX 300 ML IV SCH (13:29)
[2020-10-21] MEDS: DOCUSATE SODIUM SUGAR FREE 100MG/10ML UDC PO PRN (15:00)
[2020-10-21] MEDS: IPRATROPIUM/ALBUTEROL 0.5-3(2.5)MG/3ML NEB HHN PRN (15:32)
[2020-10-21] MEDS: ATORVASTATIN CALCIUM 10MG TABLET PO SCH (20:50)
[2020-10-21] MEDS: INSULIN GLARGINE UD 100 UNITS/ML SYR SUBCUT SCH (23:02)
[2020-10-22] VITALS (97 sets, daily range): BP systolic 89–141; BP diastolic 40–58
[2020-10-22] MEDS: ACETYLCYSTEINE 100MG/ML 10% VIAL 4ML INH SCH ×3 (00:49→12:48)
[2020-10-22] MEDS: IPRATROPIUM/ALBUTEROL 0.5-3(2.5)MG/3ML NEB HHN SCH ×4 (00:50→20:41)
[2020-10-22] MEDS: LINEZOLID 600 MG PREMIX 300 ML IV SCH ×2 (01:12→12:47)
[2020-10-22] MEDS: PROPOFOL 10MG/ML 100ML 100 ML IV PRN ×3 (03:04→20:26)
[2020-10-22] MEDS: DEXT 5%/0.9% NACL 1,000 ML IV SCH ×3 (03:05→22:31)
[2020-10-22] MEDS: PIPERACILLIN/TAZOBACTAM 2.25 G in DEXTROSE 5% WATER 50 ML IV SCH ×2 (05:07→11:40)
[2020-10-22] MEDS: BLOOD SUGAR DIAGNOSTIC STRIP TEST SCH ×4 (05:08→23:00)
[2020-10-22] MEDS: DILTIAZEM HCL 60MG TABLET PO SCH ×3 (05:08→22:32)
[2020-10-22] MEDS: INSULIN LISPRO 100 UNITS/ML SUBCUT SCH ×4 (05:16→23:00)
[2020-10-22 05:48] LABS: BASOPHILS % 0.1 % (0.0-2.0); EOSINOPHILS % 0.7 % (0.0-5.0); HEMATOCRIT. 25.5 % (42.0-52.0); HEMOGLOBIN. 8.8 g/dL (14.0-18.0); MEAN CORPUSCULAR VOLUME 92.3 fL (80.0-94.0); MONOCYTES % 6.9 % (2.0-8.0); NEUTROPHILS % 84.3 % (40.0-76.0); PLATELET 184 x1000/uL (130-400); RED BLOOD CELL COUNT 2.76 mill/uL (4.7-6.1); RED CELL DISTRIBUTION WIDTH 16.9 % (11.6-14.6)
[2020-10-22] MEDS: FERROUS SULFATE 325MG TABLET PO SCH ×2 (06:05→17:42)
[2020-10-22] MEDS ORDERED: POTASSIUM CHLORIDE 20MEQ/PACKET PO SCH (06:15)
[2020-10-22 08:04] LABS: BG BASE EXCESS -7.6 mmol/L (-2.0-2.0); BG CARBOXYHEMOGLOBIN 0.3 % (0.5-1.5); BG DEOXYHEMOGLOBIN 3.9 % (0.0-5.0); BG FRACTION INSPIRED OXYGEN 35; BG HCO3 ACT 16.3 mmol/L (22.0-26.0); BG METHEMOGLOBIN 0.3 % (0.0-1.5); BG OXYGEN SATURATION 96.1 % (92.0-98.5); BG OXYHEMOGLOBIN 95.5 % (94.0-97.0); BG PCO2 27.5 mmHg (35.0-45.0); BG PO2 80.2 mmHg (75.0-100.0); BG SAMPLE SITE RIGHT RADIAL; BG TOTAL HEMOGLOBIN 9.5 g/dL (12.0-18.0); BG TOTAL RESPIRATORY RATE 24 b/min; BG VENT MODE VENT - AC
[2020-10-22] MEDS: TAMSULOSIN HCL 0.4MG SR CAPSULE PO SCH (08:38)
[2020-10-22] MEDS: BRIMONIDINE 0.2% OPHTH DROPS 5ML BOTHEYE SCH ×2 (08:40→20:21)
[2020-10-22] MEDS: DORZOLAM/TIMOLOL 2.23/0.68% OPHTH DROPS 10ML BOTHEYE SCH ×2 (08:40→20:21)
[2020-10-22] MEDS: NYSTATIN POWDER 15GM TOP SCH ×3 (08:40→17:42)
[2020-10-22] MEDS: ENOXAPARIN 30MG/0.3ML SYR SUBCUT SCH (11:39)
[2020-10-22] MEDS: PANTOPRAZOLE SODIUM 40 MG/VIAL IV SCH (11:40)
[2020-10-22] MEDS: CEFEPIME 2,000 MG in DEXT 5% WATER 100 ML IV SCH (17:42)
[2020-10-22] MEDS: ATORVASTATIN CALCIUM 10MG TABLET PO SCH (20:21)
[2020-10-22] MEDS: INSULIN GLARGINE UD 100 UNITS/ML SYR SUBCUT SCH (22:59)
[2020-10-23] VITALS (92 sets, daily range): BP systolic 94–150; BP diastolic 39–61
[2020-10-23] MEDS: IPRATROPIUM/ALBUTEROL 0.5-3(2.5)MG/3ML NEB HHN SCH ×4 (01:14→20:53)
[2020-10-23] MEDS: ACETYLCYSTEINE 100MG/ML 10% VIAL 4ML INH SCH ×3 (01:15→13:50)
[2020-10-23] MEDS: LINEZOLID 600 MG PREMIX 300 ML IV SCH ×2 (01:25→13:49)
[2020-10-23 04:50] LABS: HEMATOCRIT. 26.2 % (42.0-52.0); HEMOGLOBIN. 8.9 g/dL (14.0-18.0); MEAN CORPUSCULAR HEMOGLOBIN 31.9 pg (28.0-32.0); MEAN CORPUSCULAR VOLUME 93.7 fL (80.0-94.0); MEAN PLATELET VOLUME 9.1 fl (7.4-10.4); PLATELET 176 x1000/uL (130-400); RED CELL DISTRIBUTION WIDTH 16.9 % (11.6-14.6)
[2020-10-23] MEDS: CEFEPIME 2,000 MG in DEXT 5% WATER 100 ML IV SCH ×2 (04:54→17:25)
[2020-10-23 05:00] LABS: CHLORIDE 106 mEq/L (98-107)
[2020-10-23] MEDS: DILTIAZEM HCL 60MG TABLET PO SCH ×3 (05:02→21:34)
[2020-10-23 05:11] LABS: PHOSPHORUS 1.5 mg/dL (2.5-4.9)
[2020-10-23] MEDS: BLOOD SUGAR DIAGNOSTIC STRIP TEST SCH ×4 (05:15→23:06)
[2020-10-23] MEDS: INSULIN LISPRO 100 UNITS/ML SUBCUT SCH ×4 (05:16→23:05)
[2020-10-23] MEDS: FERROUS SULFATE 325MG TABLET PO SCH ×2 (06:02→17:15)
[2020-10-23] MEDS: PROPOFOL 10MG/ML 100ML 100 ML IV PRN (06:09)
[2020-10-23] MEDS ORDERED: POTASSIUM PHOS,M-BASIC-D-BASIC 20 MMOL in DEXT 5% WATER 243.3333 ML IV NR (08:00)
[2020-10-23] MEDS: DOCUSATE SODIUM SUGAR FREE 100MG/10ML UDC PO PRN (08:21)
[2020-10-23] MEDS: PANTOPRAZOLE SODIUM 40 MG/VIAL IV SCH (08:21)
[2020-10-23] MEDS: DORZOLAM/TIMOLOL 2.23/0.68% OPHTH DROPS 10ML BOTHEYE SCH ×2 (08:22→21:34)
[2020-10-23] MEDS: NYSTATIN POWDER 15GM TOP SCH ×3 (08:22→17:15)
[2020-10-23] MEDS: ENOXAPARIN 40MG/0.4ML SYR SUBCUT SCH (08:22)
[2020-10-23] MEDS: BRIMONIDINE 0.2% OPHTH DROPS 5ML BOTHEYE SCH ×2 (08:22→21:34)
[2020-10-23 09:09] LABS: BG BASE EXCESS -7.9 mmol/L (-2.0-2.0); BG CARBOXYHEMOGLOBIN 0.3 % (0.5-1.5); BG DEOXYHEMOGLOBIN 2.5 % (0.0-5.0); BG FRACTION INSPIRED OXYGEN 35; BG HCO3 ACT 15.8 mmol/L (22.0-26.0); BG METHEMOGLOBIN 0.5 % (0.0-1.5); BG OXYGEN SATURATION 97.5 % (92.0-98.5); BG OXYHEMOGLOBIN 96.7 % (94.0-97.0); BG PCO2 26.5 mmHg (35.0-45.0); BG PH 7.393 (7.350-7.450); BG PO2 91.3 mmHg (75.0-100.0); BG SAMPLE SITE RIGHT RADIAL; BG TOTAL HEMOGLOBIN 9.7 g/dL (12.0-18.0); BG VENT MODE VENT - AC
[2020-10-23 09:47] LABS: PLATELET ESTIMATE NORMAL
[2020-10-23] MEDS ORDERED: PROPOFOL 10MG/ML 100ML 100 ML IV PRN (12:15)
[2020-10-23] MEDS: ATORVASTATIN CALCIUM 10MG TABLET PO SCH (21:34)
[2020-10-23] MEDS: INSULIN GLARGINE UD 100 UNITS/ML SYR SUBCUT SCH (23:06)
[2020-10-24] VITALS (93 sets, daily range): BP systolic 91–127; BP diastolic 41–77
[2020-10-24] MEDS: ACETYLCYSTEINE 100MG/ML 10% VIAL 4ML INH SCH ×3 (00:12→15:08)
[2020-10-24] MEDS: IPRATROPIUM/ALBUTEROL 0.5-3(2.5)MG/3ML NEB HHN SCH ×4 (00:12→20:11)
[2020-10-24] MEDS: LINEZOLID 600 MG PREMIX 300 ML IV SCH ×2 (01:15→13:08)
[2020-10-24 05:57] LABS: HEMATOCRIT. 26.4 % (42.0-52.0); HEMOGLOBIN. 8.9 g/dL (14.0-18.0); MEAN CORPUSCULAR HEMOGLOBIN 31.3 pg (28.0-32.0); MEAN CORPUSCULAR VOLUME 93.1 fL (80.0-94.0); MEAN PLATELET VOLUME 9.2 fl (7.4-10.4); PLATELET 181 x1000/uL (130-400); RED BLOOD CELL COUNT 2.84 mill/uL (4.7-6.1); RED CELL DISTRIBUTION WIDTH 17.2 % (11.6-14.6)
[2020-10-24] MEDS: INSULIN LISPRO 100 UNITS/ML SUBCUT SCH ×4 (06:00→23:04)
[2020-10-24 06:08] LABS: PHOSPHORUS 1.9 mg/dL (2.5-4.9)
[2020-10-24] MEDS: BLOOD SUGAR DIAGNOSTIC STRIP TEST SCH ×4 (06:11→23:04)
[2020-10-24] MEDS: DILTIAZEM HCL 60MG TABLET PO SCH ×3 (06:12→21:06)
[2020-10-24] MEDS: FERROUS SULFATE 325MG TABLET PO SCH ×2 (06:12→16:50)
[2020-10-24] MEDS: CEFEPIME 2,000 MG in DEXT 5% WATER 100 ML IV SCH ×2 (06:12→16:51)
[2020-10-24] MEDS: DOCUSATE SODIUM SUGAR FREE 100MG/10ML UDC PO PRN ×2 (08:28→16:50)
[2020-10-24] MEDS: ENOXAPARIN 40MG/0.4ML SYR SUBCUT SCH (08:29)
[2020-10-24] MEDS: PANTOPRAZOLE SODIUM 40 MG/VIAL IV SCH (08:29)
[2020-10-24] MEDS: NYSTATIN POWDER 15GM TOP SCH ×3 (08:29→16:50)
[2020-10-24] MEDS: BRIMONIDINE 0.2% OPHTH DROPS 5ML BOTHEYE SCH ×2 (08:29→21:06)
[2020-10-24] MEDS: DORZOLAM/TIMOLOL 2.23/0.68% OPHTH DROPS 10ML BOTHEYE SCH ×2 (08:29→21:06)
[2020-10-24] MEDS ORDERED: SODIUM PHOS,M-BASIC-D-BASIC 20 MM in DEXT 5% WATER 243.3333 ML IV NR (10:30)
[2020-10-24 12:52] LABS: PLATELET ESTIMATE NORMAL
[2020-10-24] MEDS ORDERED: SODIUM CHLORIDE 0.9% 250 ML IV NR (14:15)
[2020-10-24 14:16] LABS: BG BASE EXCESS -8.1 mmol/L (-2.0-2.0); BG CARBOXYHEMOGLOBIN 0.3 % (0.5-1.5); BG DEOXYHEMOGLOBIN 4.9 % (0.0-5.0); BG HCO3 ACT 15.8 mmol/L (22.0-26.0); BG METHEMOGLOBIN 0.2 % (0.0-1.5); BG OXYGEN SATURATION 95.1 % (92.0-98.5); BG OXYHEMOGLOBIN 94.6 % (94.0-97.0); BG PCO2 27.2 mmHg (35.0-45.0); BG PH 7.381 (7.350-7.450); BG PO2 75.2 mmHg (75.0-100.0); BG SAMPLE SITE RIGHT RADIAL; BG TOTAL HEMOGLOBIN 10.4 g/dL (12.0-18.0); BG VENT MODE VENT - AC
[2020-10-24] MEDS: ATORVASTATIN CALCIUM 10MG TABLET PO SCH (21:06)
[2020-10-24] MEDS: INSULIN GLARGINE UD 100 UNITS/ML SYR SUBCUT SCH (22:00)
[2020-10-25] VITALS (93 sets, daily range): BP systolic 99–146; BP diastolic 47–71
[2020-10-25] MEDS: LINEZOLID 600 MG PREMIX 300 ML IV SCH ×2 (01:46→12:47)
[2020-10-25] MEDS: IPRATROPIUM/ALBUTEROL 0.5-3(2.5)MG/3ML NEB HHN SCH ×4 (02:08→20:45)
[2020-10-25] MEDS: INSULIN LISPRO 100 UNITS/ML SUBCUT SCH ×4 (06:00→23:19)
[2020-10-25 06:07] LABS: HEMATOCRIT. 27.7 % (42.0-52.0); HEMOGLOBIN. 9.3 g/dL (14.0-18.0); MEAN CORPUSCULAR HEMOGLOBIN 31.7 pg (28.0-32.0); MEAN CORPUSCULAR VOLUME 94.4 fL (80.0-94.0); MEAN PLATELET VOLUME 9.3 fl (7.4-10.4); PLATELET 180 x1000/uL (130-400); RED BLOOD CELL COUNT 2.94 mill/uL (4.7-6.1); RED CELL DISTRIBUTION WIDTH 17.6 % (11.6-14.6)
[2020-10-25] MEDS: BLOOD SUGAR DIAGNOSTIC STRIP TEST SCH ×4 (06:10→23:19)
[2020-10-25] MEDS: CEFEPIME 2,000 MG in DEXT 5% WATER 100 ML IV SCH (06:19)
[2020-10-25] MEDS: FERROUS SULFATE 325MG TABLET PO SCH (06:19)
[2020-10-25] MEDS: DILTIAZEM HCL 60MG TABLET PO SCH (06:19)
[2020-10-25 06:35] LABS: PHOSPHORUS 2.7 mg/dL (2.5-4.9)
[2020-10-25 07:24] LABS: BG BASE EXCESS -8.2 mmol/L (-2.0-2.0); BG CARBOXYHEMOGLOBIN 0.3 % (0.5-1.5); BG DEOXYHEMOGLOBIN 3.6 % (0.0-5.0); BG HCO3 ACT 14.9 mmol/L (22.0-26.0); BG METHEMOGLOBIN 0.2 % (0.0-1.5); BG OXYGEN SATURATION 96.4 % (92.0-98.5); BG OXYHEMOGLOBIN 95.9 % (94.0-97.0); BG PCO2 23.8 mmHg (35.0-45.0); BG PH 7.415 (7.350-7.450); BG PO2 84.1 mmHg (75.0-100.0); BG SAMPLE SITE RIGHT RADIAL; BG TOTAL HEMOGLOBIN 9.8 g/dL (12.0-18.0); BG VENT MODE VENT - AC
[2020-10-25] MEDS: PANTOPRAZOLE SODIUM 40 MG/VIAL IV SCH (08:50)
[2020-10-25] MEDS: ENOXAPARIN 40MG/0.4ML SYR SUBCUT SCH (08:51)
[2020-10-25] MEDS: DORZOLAM/TIMOLOL 2.23/0.68% OPHTH DROPS 10ML BOTHEYE SCH ×2 (08:51→20:55)
[2020-10-25] MEDS: NYSTATIN POWDER 15GM TOP SCH ×3 (08:51→17:36)
[2020-10-25] MEDS: BRIMONIDINE 0.2% OPHTH DROPS 5ML BOTHEYE SCH ×2 (08:52→20:55)
[2020-10-25 10:40] LABS: PLATELET ESTIMATE NORMAL
[2020-10-25] MEDS: SODIUM CHLORIDE 0.9% 1,000 ML IV SCH ×2 (11:42→21:00)
[2020-10-25] MEDS: DEXTROSE 50% WATER 50ML SYRINGE IV PRN (11:52)
[2020-10-25] MEDS ORDERED: LEVOFLOXACIN 750MG PREMIX 150 ML IV NR (14:00)
[2020-10-25] MEDS: ATORVASTATIN CALCIUM 10MG TABLET PO SCH (20:54)
[2020-10-25] MEDS: INSULIN GLARGINE UD 100 UNITS/ML SYR SUBCUT SCH (22:00)
[2020-10-26] VITALS (96 sets, daily range): BP systolic 115–167; BP diastolic 54–107
[2020-10-26] MEDS: IPRATROPIUM/ALBUTEROL 0.5-3(2.5)MG/3ML NEB HHN SCH ×5 (00:30→20:49)
[2020-10-26] MEDS: LINEZOLID 600 MG PREMIX 300 ML IV SCH (01:02)
[2020-10-26] MEDS: SODIUM CHLORIDE 0.9% 1,000 ML IV SCH (03:47)
[2020-10-26 05:17] LABS: HEMATOCRIT. 26.3 % (42.0-52.0); HEMOGLOBIN. 8.7 g/dL (14.0-18.0); MEAN CORPUSCULAR VOLUME 94.2 fL (80.0-94.0); MEAN PLATELET VOLUME 9.1 fl (7.4-10.4); PLATELET 190 x1000/uL (130-400); RED BLOOD CELL COUNT 2.79 mill/uL (4.7-6.1)
[2020-10-26] MEDS: BLOOD SUGAR DIAGNOSTIC STRIP TEST SCH ×4 (05:38→23:14)
[2020-10-26] MEDS: INSULIN LISPRO 100 UNITS/ML SUBCUT SCH ×4 (05:38→23:15)
[2020-10-26] MEDS: PANTOPRAZOLE SODIUM 40 MG/VIAL IV SCH (08:07)
[2020-10-26] MEDS: NYSTATIN POWDER 15GM TOP SCH ×3 (08:07→18:08)
[2020-10-26] MEDS: DORZOLAM/TIMOLOL 2.23/0.68% OPHTH DROPS 10ML BOTHEYE SCH ×2 (08:07→21:40)
[2020-10-26] MEDS: BRIMONIDINE 0.2% OPHTH DROPS 5ML BOTHEYE SCH ×2 (08:07→21:40)
[2020-10-26] MEDS: ENOXAPARIN 40MG/0.4ML SYR SUBCUT SCH (08:07)
[2020-10-26 09:01] LABS: BG BASE EXCESS -7.6 mmol/L (-2.0-2.0); BG CARBOXYHEMOGLOBIN 0.3 % (0.5-1.5); BG DEOXYHEMOGLOBIN 1.1 % (0.0-5.0); BG FRACTION INSPIRED OXYGEN 35; BG HCO3 ACT 15.8 mmol/L (22.0-26.0); BG METHEMOGLOBIN 0.3 % (0.0-1.5); BG OXYGEN SATURATION 98.9 % (92.0-98.5); BG OXYHEMOGLOBIN 98.3 % (94.0-97.0); BG PCO2 25.4 mmHg (35.0-45.0); BG PH 7.412 (7.350-7.450); BG PO2 132.2 mmHg (75.0-100.0); BG SAMPLE SITE RIGHT RADIAL; BG TOTAL HEMOGLOBIN 9.4 g/dL (12.0-18.0); BG VENT MODE VENT - AC
[2020-10-26 09:35] LABS: PLATELET ESTIMATE NORMAL
[2020-10-26] MEDS: AMLODIPINE 5MG TABLET NG SCH (10:47)
[2020-10-26] MEDS: LEVOFLOXACIN 500MG PREMIX 100 ML IV SCH (10:47)
[2020-10-26] MEDS: ACETYLCYSTEINE 100MG/ML 10% VIAL 4ML INH SCH ×2 (14:47→16:51)
[2020-10-26 17:24] LABS: CLARITY URINE CLEAR (CLEAR); COLOR URINE YELLOW (YELLOW); KETONES URINE NEGATIVE (NEGATIVE); LEUKOCYTE ESTERASE URINE NEGATIVE (NEGATIVE); NITRITE URINE NEGATIVE (NEGATIVE); OCCULT BLOOD URINE TRACE (NEGATIVE); PROTEIN URINE 1+ (NEGATIVE); SPECIFIC GRAVITY URINE 1.016 (1.005-1.030); UROBILINOGEN URINE 0.2 E.U./dL (0.2-1.0)
[2020-10-26] MEDS: CEFAZOLIN 2,000 MG in DEXT 5% WATER 100 ML IV SCH (18:08)
[2020-10-26] MEDS: ATORVASTATIN CALCIUM 10MG TABLET PO SCH (21:40)
[2020-10-26] MEDS: INSULIN GLARGINE UD 100 UNITS/ML SYR SUBCUT SCH (22:00)
[2020-10-27] VITALS (67 sets, daily range): BP systolic 108–172; BP diastolic 49–102
[2020-10-27] MEDS: IPRATROPIUM/ALBUTEROL 0.5-3(2.5)MG/3ML NEB HHN SCH ×5 (00:23→20:35)
[2020-10-27] MEDS: ACETYLCYSTEINE 100MG/ML 10% VIAL 4ML INH SCH ×2 (00:23→15:46)
[2020-10-27] MEDS: CEFAZOLIN 2,000 MG in DEXT 5% WATER 100 ML IV SCH ×3 (00:49→17:07)
[2020-10-27] MEDS: BLOOD SUGAR DIAGNOSTIC STRIP TEST SCH ×3 (05:08→17:08)
[2020-10-27] MEDS: INSULIN LISPRO 100 UNITS/ML SUBCUT SCH ×4 (05:11→23:07)
[2020-10-27 05:47] LABS: CHLORIDE 104 mEq/L (98-107)
[2020-10-27 05:51] LABS: HEMATOCRIT. 26.2 % (42.0-52.0); HEMOGLOBIN. 8.7 g/dL (14.0-18.0); MEAN CORPUSCULAR HEMOGLOBIN 31.3 pg (28.0-32.0); MEAN CORPUSCULAR VOLUME 94.4 fL (80.0-94.0); MEAN PLATELET VOLUME 8.9 fl (7.4-10.4); PLATELET 200 x1000/uL (130-400); RED BLOOD CELL COUNT 2.78 mill/uL (4.7-6.1); RED CELL DISTRIBUTION WIDTH 17.3 % (11.6-14.6)
[2020-10-27 07:25] LABS: BG BASE EXCESS -8.2 mmol/L (-2.0-2.0); BG CARBOXYHEMOGLOBIN 0.2 % (0.5-1.5); BG DEOXYHEMOGLOBIN 2.5 % (0.0-5.0); BG HCO3 ACT 15.6 mmol/L (22.0-26.0); BG METHEMOGLOBIN 0.4 % (0.0-1.5); BG OXYGEN SATURATION 97.5 % (92.0-98.5); BG OXYHEMOGLOBIN 96.9 % (94.0-97.0); BG PH 7.381 (7.350-7.450); BG PO2 97.4 mmHg (75.0-100.0); BG SAMPLE SITE RIGHT RADIAL; BG TOTAL HEMOGLOBIN 10.1 g/dL (12.0-18.0); BG VENT MODE VENT - AC
[2020-10-27] MEDS: PANTOPRAZOLE SODIUM 40 MG/VIAL IV SCH (08:09)
[2020-10-27] MEDS: AMLODIPINE 5MG TABLET NG SCH (08:09)
[2020-10-27] MEDS: DORZOLAM/TIMOLOL 2.23/0.68% OPHTH DROPS 10ML BOTHEYE SCH ×2 (08:15→22:16)
[2020-10-27] MEDS: ENOXAPARIN 40MG/0.4ML SYR SUBCUT SCH (08:15)
[2020-10-27] MEDS: BRIMONIDINE 0.2% OPHTH DROPS 5ML BOTHEYE SCH ×2 (08:15→22:16)
[2020-10-27] MEDS: NYSTATIN POWDER 15GM TOP SCH ×3 (08:15→17:08)
[2020-10-27] MEDS: CITRIC ACID/SODIUM CITRATE SOLN 30ML UDC PO SCH ×3 (08:35→17:08)
[2020-10-27] MEDS: LEVOFLOXACIN 500MG PREMIX 100 ML IV SCH (10:37)
[2020-10-27 15:49] LABS: PLATELET ESTIMATE NORMAL
[2020-10-27] MEDS: ATORVASTATIN CALCIUM 10MG TABLET PO SCH (22:15)
[2020-10-27] MEDS: INSULIN GLARGINE UD 100 UNITS/ML SYR SUBCUT SCH (23:08)
[2020-10-28] VITALS (50 sets, daily range): BP systolic 96–170; BP diastolic 48–87
[2020-10-28] MEDS: IPRATROPIUM/ALBUTEROL 0.5-3(2.5)MG/3ML NEB HHN SCH ×6 (00:17→19:53)
[2020-10-28] MEDS: ACETYLCYSTEINE 100MG/ML 10% VIAL 4ML INH SCH ×3 (00:17→16:40)
[2020-10-28] MEDS: BLOOD SUGAR DIAGNOSTIC STRIP TEST SCH ×5 (00:22→23:37)
[2020-10-28] MEDS: CEFAZOLIN 2,000 MG in DEXT 5% WATER 100 ML IV SCH ×3 (00:40→17:29)
[2020-10-28] MEDS: INSULIN LISPRO 100 UNITS/ML SUBCUT SCH ×4 (05:12→23:38)
[2020-10-28 05:27] LABS: BASOPHILS % 0.1 % (0.0-2.0); EOSINOPHILS % 0.5 % (0.0-5.0); HEMATOCRIT. 25.2 % (42.0-52.0); HEMOGLOBIN. 8.4 g/dL (14.0-18.0); LYMPHOCYTES % 9.5 % (20.0-50.0); MEAN CORPUSCULAR HEMOGLOBIN 30.9 pg (28.0-32.0); MEAN CORPUSCULAR VOLUME 92.9 fL (80.0-94.0); MEAN PLATELET VOLUME 8.5 fl (7.4-10.4); MONOCYTES % 5.6 % (2.0-8.0); NEUTROPHILS % 84.3 % (40.0-76.0); PLATELET 180 x1000/uL (130-400); RED BLOOD CELL COUNT 2.72 mill/uL (4.7-6.1)
[2020-10-28] MEDS ORDERED: HYDRALAZINE 20MG/ML VIAL IV PRN (05:30)
[2020-10-28 05:32] LABS: CHLORIDE 108 mEq/L (98-107)
[2020-10-28 08:54] LABS: BG CARBOXYHEMOGLOBIN 0.3 % (0.5-1.5); BG DEOXYHEMOGLOBIN 2.1 % (0.0-5.0); BG FRACTION INSPIRED OXYGEN 35; BG HCO3 ACT 21.9 mmol/L (22.0-26.0); BG METHEMOGLOBIN 0.3 % (0.0-1.5); BG OXYGEN SATURATION 97.9 % (92.0-98.5); BG OXYHEMOGLOBIN 97.3 % (94.0-97.0); BG PCO2 29.7 mmHg (35.0-45.0); BG PH 7.486 (7.350-7.450); BG PO2 103.3 mmHg (75.0-100.0); BG SAMPLE SITE RIGHT RADIAL; BG TOTAL HEMOGLOBIN 8.7 g/dL (12.0-18.0); BG VENT MODE VENT - AC
[2020-10-28] MEDS: DORZOLAM/TIMOLOL 2.23/0.68% OPHTH DROPS 10ML BOTHEYE SCH ×2 (10:20→21:04)
[2020-10-28] MEDS: CITRIC ACID/SODIUM CITRATE SOLN 30ML UDC PO SCH ×3 (10:20→17:29)
[2020-10-28] MEDS: PANTOPRAZOLE SODIUM 40 MG/VIAL IV SCH (10:20)
[2020-10-28] MEDS: BRIMONIDINE 0.2% OPHTH DROPS 5ML BOTHEYE SCH ×2 (10:20→21:04)
[2020-10-28] MEDS: LEVOTHYROXINE SODIUM 50MCG TABLET PO SCH (10:21)
[2020-10-28] MEDS: ENOXAPARIN 40MG/0.4ML SYR SUBCUT SCH (10:22)
[2020-10-28] MEDS: AMLODIPINE 5MG TABLET NG SCH (10:22)
[2020-10-28] MEDS: NYSTATIN POWDER 15GM TOP SCH ×3 (10:23→17:29)
[2020-10-28] MEDS: LEVOFLOXACIN 500MG PREMIX 100 ML IV SCH (12:56)
[2020-10-28] MEDS: SULFAMETHOXAZOLE/TRIMETHOPRIM 320 MG in DEXT 5% WATER 500 ML IV SCH ×2 (14:37→22:28)
[2020-10-28] MEDS: ATORVASTATIN CALCIUM 10MG TABLET PO SCH (21:04)
[2020-10-28] MEDS: INSULIN GLARGINE UD 100 UNITS/ML SYR SUBCUT SCH (21:06)
[2020-10-29] VITALS (53 sets, daily range): BP systolic 112–165; BP diastolic 50–91
[2020-10-29] MEDS: IPRATROPIUM/ALBUTEROL 0.5-3(2.5)MG/3ML NEB HHN SCH ×6 (00:02→20:22)
[2020-10-29] MEDS: ACETYLCYSTEINE 100MG/ML 10% VIAL 4ML INH SCH ×4 (00:03→20:22)
[2020-10-29] MEDS: SULFAMETHOXAZOLE/TRIMETHOPRIM 320 MG in DEXT 5% WATER 500 ML IV SCH ×3 (05:42→22:24)
[2020-10-29 05:48] LABS: CHLORIDE 105 mEq/L (98-107)
[2020-10-29 05:49] LABS: BASOPHILS % 0.1 % (0.0-2.0); EOSINOPHILS % 0.6 % (0.0-5.0); HEMATOCRIT. 22.5 % (42.0-52.0); HEMOGLOBIN. 7.5 g/dL (14.0-18.0); LYMPHOCYTES % 13.3 % (20.0-50.0); MEAN CORPUSCULAR HEMOGLOBIN 31.2 pg (28.0-32.0); MEAN CORPUSCULAR VOLUME 93.5 fL (80.0-94.0); MEAN PLATELET VOLUME 8.4 fl (7.4-10.4); MONOCYTES % 7.7 % (2.0-8.0); NEUTROPHILS % 78.3 % (40.0-76.0); PLATELET 144 x1000/uL (130-400); RED CELL DISTRIBUTION WIDTH 17.4 % (11.6-14.6)
[2020-10-29] MEDS: BLOOD SUGAR DIAGNOSTIC STRIP TEST SCH ×3 (06:03→17:20)
[2020-10-29] MEDS: LEVOTHYROXINE SODIUM 50MCG TABLET PO SCH (06:04)
[2020-10-29] MEDS: INSULIN LISPRO 100 UNITS/ML SUBCUT SCH ×3 (06:13→17:20)
[2020-10-29 08:45] LABS: BG BASE EXCESS -0.4 mmol/L (-2.0-2.0); BG CARBOXYHEMOGLOBIN 0.3 % (0.5-1.5); BG DEOXYHEMOGLOBIN 1.5 % (0.0-5.0); BG FRACTION INSPIRED OXYGEN 35; BG HCO3 ACT 22.2 mmol/L (22.0-26.0); BG METHEMOGLOBIN 0.3 % (0.0-1.5); BG OXYGEN SATURATION 98.5 % (92.0-98.5); BG OXYHEMOGLOBIN 97.9 % (94.0-97.0); BG PCO2 28.3 mmHg (35.0-45.0); BG PH 7.512 (7.350-7.450); BG PO2 114.5 mmHg (75.0-100.0); BG SAMPLE SITE RIGHT RADIAL; BG TOTAL HEMOGLOBIN 8.1 g/dL (12.0-18.0); BG TOTAL RESPIRATORY RATE 16 b/min; BG VENT MODE VENT - SIMV
[2020-10-29] MEDS: DOCUSATE SODIUM SUGAR FREE 100MG/10ML UDC PO PRN (09:09)
[2020-10-29] MEDS: PANTOPRAZOLE SODIUM 40 MG/VIAL IV SCH (09:09)
[2020-10-29] MEDS: CEFAZOLIN 2,000 MG in DEXT 5% WATER 100 ML IV SCH ×3 (09:09→17:19)
[2020-10-29] MEDS: ENOXAPARIN 40MG/0.4ML SYR SUBCUT SCH (09:09)
[2020-10-29] MEDS: AMLODIPINE 5MG TABLET NG SCH (09:09)
[2020-10-29] MEDS: DORZOLAM/TIMOLOL 2.23/0.68% OPHTH DROPS 10ML BOTHEYE SCH ×2 (09:10→20:58)
[2020-10-29] MEDS: BRIMONIDINE 0.2% OPHTH DROPS 5ML BOTHEYE SCH ×2 (09:10→20:58)
[2020-10-29] MEDS: NYSTATIN POWDER 15GM TOP SCH ×3 (09:11→17:19)
[2020-10-29 13:07] LABS: BG BASE EXCESS -0.8 mmol/L (-2.0-2.0); BG CARBOXYHEMOGLOBIN 0.3 % (0.5-1.5); BG DEOXYHEMOGLOBIN 1.9 % (0.0-5.0); BG FRACTION INSPIRED OXYGEN 35; BG HCO3 ACT 21.7 mmol/L (22.0-26.0); BG METHEMOGLOBIN 0.3 % (0.0-1.5); BG OXYGEN SATURATION 98.1 % (92.0-98.5); BG OXYHEMOGLOBIN 97.5 % (94.0-97.0); BG PCO2 27.7 mmHg (35.0-45.0); BG PH 7.511 (7.350-7.450); BG PO2 112.6 mmHg (75.0-100.0); BG SAMPLE SITE LEFT RADIAL; BG TOTAL HEMOGLOBIN 8.7 g/dL (12.0-18.0); BG VENT MODE VENT - CPAP
[2020-10-29] MEDS: IPRATROPIUM/ALBUTEROL 0.5-3(2.5)MG/3ML NEB HHN PRN (13:34)
[2020-10-29] MEDS: ATORVASTATIN CALCIUM 10MG TABLET PO SCH (20:58)
[2020-10-29] MEDS: INSULIN GLARGINE UD 100 UNITS/ML SYR SUBCUT SCH (22:25)
[2020-10-30] VITALS (31 sets, daily range): BP systolic 111–157; BP diastolic 44–68
[2020-10-30] MEDS: IPRATROPIUM/ALBUTEROL 0.5-3(2.5)MG/3ML NEB HHN SCH ×6 (00:18→21:10)
[2020-10-30] MEDS: CEFAZOLIN 2,000 MG in DEXT 5% WATER 100 ML IV SCH ×3 (00:34→16:37)
[2020-10-30] MEDS: BLOOD SUGAR DIAGNOSTIC STRIP TEST SCH ×4 (00:34→17:53)
[2020-10-30] MEDS: LEVOTHYROXINE SODIUM 50MCG TABLET PO SCH (06:01)
[2020-10-30] MEDS: INSULIN LISPRO 100 UNITS/ML SUBCUT SCH ×4 (06:49→17:53)
[2020-10-30] MEDS: SULFAMETHOXAZOLE/TRIMETHOPRIM 320 MG in DEXT 5% WATER 500 ML IV SCH ×3 (07:29→23:16)
[2020-10-30] MEDS: ACETYLCYSTEINE 100MG/ML 10% VIAL 4ML INH SCH ×2 (08:26→16:37)
[2020-10-30] MEDS: PANTOPRAZOLE SODIUM 40 MG/VIAL IV SCH (08:26)
[2020-10-30] MEDS: BRIMONIDINE 0.2% OPHTH DROPS 5ML BOTHEYE SCH ×2 (08:27→20:59)
[2020-10-30] MEDS: DORZOLAM/TIMOLOL 2.23/0.68% OPHTH DROPS 10ML BOTHEYE SCH ×2 (08:27→20:59)
[2020-10-30] MEDS: AMLODIPINE 5MG TABLET NG SCH (08:27)
[2020-10-30] MEDS: NYSTATIN POWDER 15GM TOP SCH ×3 (10:41→18:30)
[2020-10-30 11:46] LABS: BASOPHILS % 0.3 % (0.0-2.0); EOSINOPHILS % 0.8 % (0.0-5.0); HEMATOCRIT. 21.2 % (42.0-52.0); HEMOGLOBIN. 7.2 g/dL (14.0-18.0); LYMPHOCYTES % 13.2 % (20.0-50.0); MEAN CORPUSCULAR HEMOGLOBIN 32.9 pg (28.0-32.0); MEAN CORPUSCULAR VOLUME 96.5 fL (80.0-94.0); MEAN PLATELET VOLUME 8.5 fl (7.4-10.4); NEUTROPHILS % 76.7 % (40.0-76.0); PLATELET 68 x1000/uL (130-400); RED BLOOD CELL COUNT 2.19 mill/uL (4.7-6.1); RED CELL DISTRIBUTION WIDTH 17.1 % (11.6-14.6)
[2020-10-30 11:47] LABS: CHLORIDE 106 mEq/L (98-107)
[2020-10-30] MEDS: ATORVASTATIN CALCIUM 10MG TABLET PO SCH (20:59)
[2020-10-30] MEDS: INSULIN GLARGINE UD 100 UNITS/ML SYR SUBCUT SCH (22:00)
[2020-10-31] VITALS (20 sets, daily range): BP systolic 110–142; BP diastolic 48–77
[2020-10-31] MEDS: ACETYLCYSTEINE 100MG/ML 10% VIAL 4ML INH SCH ×2 (01:01→07:54)
[2020-10-31] MEDS: IPRATROPIUM/ALBUTEROL 0.5-3(2.5)MG/3ML NEB HHN SCH ×6 (01:01→20:37)
[2020-10-31] MEDS: CEFAZOLIN 2,000 MG in DEXT 5% WATER 100 ML IV SCH ×2 (01:42→08:56)
[2020-10-31] MEDS: INSULIN LISPRO 100 UNITS/ML SUBCUT SCH ×5 (06:00→23:43)
[2020-10-31] MEDS: SULFAMETHOXAZOLE/TRIMETHOPRIM 320 MG in DEXT 5% WATER 500 ML IV SCH ×3 (06:18→21:44)
[2020-10-31] MEDS: BLOOD SUGAR DIAGNOSTIC STRIP TEST SCH ×5 (06:45→23:49)
[2020-10-31 07:48] LABS: BASOPHILS % 0.5 % (0.0-2.0); LYMPHOCYTES % 17.7 % (20.0-50.0); MEAN CORPUSCULAR HEMOGLOBIN 32.6 pg (28.0-32.0); MEAN CORPUSCULAR VOLUME 93.4 fL (80.0-94.0); MEAN PLATELET VOLUME 8.9 fl (7.4-10.4); MONOCYTES % 7.5 % (2.0-8.0); NEUTROPHILS % 73.3 % (40.0-76.0); PLATELET 98 x1000/uL (130-400); RED BLOOD CELL COUNT 2.15 mill/uL (4.7-6.1); RED CELL DISTRIBUTION WIDTH 16.8 % (11.6-14.6)
[2020-10-31 07:52] LABS: HEMATOCRIT. 20.1 % (42.0-52.0)
[2020-10-31 08:17] LABS: CHLORIDE 103 mEq/L (98-107)
[2020-10-31] MEDS: AMLODIPINE 5MG TABLET NG SCH (08:55)
[2020-10-31] MEDS: LEVOTHYROXINE SODIUM 50MCG TABLET PO SCH (08:55)
[2020-10-31] MEDS: NYSTATIN POWDER 15GM TOP SCH ×3 (08:56→17:27)
[2020-10-31] MEDS: BRIMONIDINE 0.2% OPHTH DROPS 5ML BOTHEYE SCH ×2 (08:56→21:44)
[2020-10-31] MEDS: DORZOLAM/TIMOLOL 2.23/0.68% OPHTH DROPS 10ML BOTHEYE SCH ×2 (08:56→21:44)
[2020-10-31] MEDS: PANTOPRAZOLE SODIUM 40 MG/VIAL IV SCH (08:57)
[2020-10-31] MEDS: DOCUSATE SODIUM SUGAR FREE 100MG/10ML UDC PO PRN (16:00)
[2020-10-31] MEDS: GUAIFENESIN 200MG/10ML SUGAR FREE UDC PO SCH ×2 (17:52→23:42)
[2020-10-31] MEDS: ATORVASTATIN CALCIUM 10MG TABLET PO SCH (21:44)
[2020-10-31] MEDS: INSULIN GLARGINE UD 100 UNITS/ML SYR SUBCUT SCH (22:00)
[2020-11-01] VITALS (12 sets, daily range): BP systolic 116–145; BP diastolic 47–68
[2020-11-01] MEDS: IPRATROPIUM/ALBUTEROL 0.5-3(2.5)MG/3ML NEB HHN SCH ×6 (01:15→18:00)
[2020-11-01] MEDS: GUAIFENESIN 200MG/10ML SUGAR FREE UDC PO SCH ×4 (05:30→23:43)
[2020-11-01 05:57] LABS: CHLORIDE 102 mEq/L (98-107)
[2020-11-01] MEDS: INSULIN LISPRO 100 UNITS/ML SUBCUT SCH ×3 (06:00→17:43)
[2020-11-01] MEDS: SULFAMETHOXAZOLE/TRIMETHOPRIM 320 MG in DEXT 5% WATER 500 ML IV SCH ×3 (06:13→22:08)
[2020-11-01] MEDS: BLOOD SUGAR DIAGNOSTIC STRIP TEST SCH ×3 (06:54→17:42)
[2020-11-01 07:21] LABS: HEMATOCRIT. 24.5 % (42.0-52.0); HEMOGLOBIN. 8.4 g/dL (14.0-18.0); MEAN CORPUSCULAR HEMOGLOBIN 31.3 pg (28.0-32.0); MEAN CORPUSCULAR VOLUME 91.3 fL (80.0-94.0); MEAN PLATELET VOLUME 9.9 fl (7.4-10.4); PLATELET 138 x1000/uL (130-400); RED BLOOD CELL COUNT 2.68 mill/uL (4.7-6.1); RED CELL DISTRIBUTION WIDTH 16.1 % (11.6-14.6)
[2020-11-01] MEDS: PANTOPRAZOLE SODIUM 40 MG/VIAL IV SCH (08:54)
[2020-11-01] MEDS: NYSTATIN POWDER 15GM TOP SCH ×3 (08:56→17:42)
[2020-11-01] MEDS: BRIMONIDINE 0.2% OPHTH DROPS 5ML BOTHEYE SCH ×2 (08:56→22:08)
[2020-11-01] MEDS: DOCUSATE SODIUM SUGAR FREE 100MG/10ML UDC PO PRN (08:56)
[2020-11-01] MEDS: LEVOTHYROXINE SODIUM 50MCG TABLET PO SCH (08:57)
[2020-11-01] MEDS: DORZOLAM/TIMOLOL 2.23/0.68% OPHTH DROPS 10ML BOTHEYE SCH ×2 (08:57→22:08)
[2020-11-01] MEDS: AMLODIPINE 5MG TABLET NG SCH (08:58)
[2020-11-01] MEDS: TAMSULOSIN HCL 0.4MG SR CAPSULE PO SCH (09:00)
[2020-11-01 13:12] LABS: PLATELET ESTIMATE NORMAL
[2020-11-01] MEDS: ACETYLCYSTEINE 100MG/ML 10% VIAL 4ML INH SCH (16:30)
[2020-11-01] MEDS: ATORVASTATIN CALCIUM 10MG TABLET PO SCH (22:07)
[2020-11-01] MEDS: DOXAZOSIN MESYLATE 2MG TABLET PO SCH (22:07)
[2020-11-01] MEDS: INSULIN GLARGINE UD 100 UNITS/ML SYR SUBCUT SCH (22:09)
[2020-11-02] VITALS (9 sets, daily range): BP systolic 110–137; BP diastolic 47–74
[2020-11-02] MEDS: IPRATROPIUM/ALBUTEROL 0.5-3(2.5)MG/3ML NEB HHN SCH ×6 (00:09→20:28)
[2020-11-02] MEDS: ACETYLCYSTEINE 100MG/ML 10% VIAL 4ML INH SCH ×3 (00:10→15:58)
[2020-11-02] MEDS: BLOOD SUGAR DIAGNOSTIC STRIP TEST SCH ×5 (00:47→23:52)
[2020-11-02] MEDS: INSULIN LISPRO 100 UNITS/ML SUBCUT SCH ×5 (00:53→23:51)
[2020-11-02 06:26] LABS: HEMATOCRIT. 26.1 % (42.0-52.0); HEMOGLOBIN. 8.8 g/dL (14.0-18.0); MEAN CORPUSCULAR HEMOGLOBIN 31.5 pg (28.0-32.0); MEAN CORPUSCULAR VOLUME 93.1 fL (80.0-94.0); MEAN PLATELET VOLUME 10.3 fl (7.4-10.4); PLATELET 167 x1000/uL (130-400); RED CELL DISTRIBUTION WIDTH 16.7 % (11.6-14.6)
[2020-11-02 06:56] LABS: CHLORIDE 101 mEq/L (98-107)
[2020-11-02] MEDS: LEVOTHYROXINE SODIUM 50MCG TABLET PO SCH (07:30)
[2020-11-02] MEDS: SULFAMETHOXAZOLE/TRIMETHOPRIM 320 MG in DEXT 5% WATER 500 ML IV SCH (07:46)
[2020-11-02] MEDS: GUAIFENESIN 200MG/10ML SUGAR FREE UDC PO SCH ×3 (07:46→17:11)
[2020-11-02] MEDS: PANTOPRAZOLE SODIUM 40 MG/VIAL IV SCH (09:37)
[2020-11-02] MEDS: DORZOLAM/TIMOLOL 2.23/0.68% OPHTH DROPS 10ML BOTHEYE SCH ×2 (09:37→20:26)
[2020-11-02] MEDS: BRIMONIDINE 0.2% OPHTH DROPS 5ML BOTHEYE SCH ×2 (09:37→20:26)
[2020-11-02] MEDS: NYSTATIN POWDER 15GM TOP SCH ×3 (09:38→17:11)
[2020-11-02] MEDS: AMLODIPINE 5MG TABLET NG SCH (09:39)
[2020-11-02] MEDS ORDERED: SODIUM POLYSTYRENE SULFONATE 15 G/60 ML BOT PO SCH (11:00)
[2020-11-02] MEDS: GENTAMICIN SULFATE 160 MG in SODIUM CHLORIDE 0.9% 50 ML IV SCH (11:55)
[2020-11-02] MEDS: BISACODYL 10MG SUPP PR SCH (11:55)
[2020-11-02 12:15] LABS: NUCLEATED RED BLOOD CELLS 1 /100 WBC
[2020-11-02 12:16] LABS: PLATELET ESTIMATE NORMAL
[2020-11-02] MEDS: ATORVASTATIN CALCIUM 10MG TABLET PO SCH (20:27)
[2020-11-02] MEDS: DOXAZOSIN MESYLATE 2MG TABLET PO SCH (20:27)
[2020-11-02] MEDS: INSULIN GLARGINE UD 100 UNITS/ML SYR SUBCUT SCH (20:34)
[2020-11-03] VITALS (12 sets, daily range): BP systolic 83–121; BP diastolic 41–61
[2020-11-03] MEDS: ACETYLCYSTEINE 100MG/ML 10% VIAL 4ML INH SCH ×3 (00:02→15:41)
[2020-11-03] MEDS: IPRATROPIUM/ALBUTEROL 0.5-3(2.5)MG/3ML NEB HHN SCH ×6 (00:02→21:13)
[2020-11-03] MEDS: GUAIFENESIN 200MG/10ML SUGAR FREE UDC PO SCH ×5 (00:09→23:39)
[2020-11-03] MEDS: BLOOD SUGAR DIAGNOSTIC STRIP TEST SCH ×3 (05:07→17:52)
[2020-11-03] MEDS: INSULIN LISPRO 100 UNITS/ML SUBCUT SCH ×3 (05:07→17:52)
[2020-11-03] MEDS: LEVOTHYROXINE SODIUM 50MCG TABLET PO SCH (05:07)
[2020-11-03 05:57] LABS: BASOPHILS % 0.3 % (0.0-2.0); EOSINOPHILS % 0.2 % (0.0-5.0); HEMATOCRIT. 25.3 % (42.0-52.0); HEMOGLOBIN. 8.4 g/dL (14.0-18.0); LYMPHOCYTES % 8.8 % (20.0-50.0); MEAN CORPUSCULAR HEMOGLOBIN 30.9 pg (28.0-32.0); MEAN PLATELET VOLUME 9.6 fl (7.4-10.4); MONOCYTES % 6.3 % (2.0-8.0); NEUTROPHILS % 84.4 % (40.0-76.0); PLATELET 233 x1000/uL (130-400); RED BLOOD CELL COUNT 2.72 mill/uL (4.7-6.1); RED CELL DISTRIBUTION WIDTH 16.4 % (11.6-14.6)
[2020-11-03 06:30] LABS: PHOSPHORUS 2.8 mg/dL (2.5-4.9)
[2020-11-03] MEDS: AMLODIPINE 5MG TABLET NG SCH (09:00)
[2020-11-03] MEDS: DORZOLAM/TIMOLOL 2.23/0.68% OPHTH DROPS 10ML BOTHEYE SCH ×2 (10:15→20:31)
[2020-11-03] MEDS: PANTOPRAZOLE SODIUM 40 MG/VIAL IV SCH (10:15)
[2020-11-03] MEDS: GENTAMICIN SULFATE 160 MG in SODIUM CHLORIDE 0.9% 50 ML IV SCH (10:15)
[2020-11-03] MEDS: BRIMONIDINE 0.2% OPHTH DROPS 5ML BOTHEYE SCH ×2 (10:15→20:31)
[2020-11-03] MEDS: BISACODYL 10MG SUPP PR SCH (10:16)
[2020-11-03] MEDS: NYSTATIN POWDER 15GM TOP SCH ×3 (10:17→17:52)
[2020-11-03] MEDS: ATORVASTATIN CALCIUM 10MG TABLET PO SCH (20:29)
[2020-11-03] MEDS: DOXAZOSIN MESYLATE 2MG TABLET PO SCH (20:29)
[2020-11-03] MEDS: INSULIN GLARGINE UD 100 UNITS/ML SYR SUBCUT SCH (22:14)
[2020-11-04] VITALS (13 sets, daily range): BP systolic 100–132; BP diastolic 46–64
[2020-11-04] MEDS: ACETYLCYSTEINE 100MG/ML 10% VIAL 4ML INH SCH ×4 (00:07→16:30)
[2020-11-04] MEDS: IPRATROPIUM/ALBUTEROL 0.5-3(2.5)MG/3ML NEB HHN SCH ×6 (00:07→21:30)
[2020-11-04] MEDS: BLOOD SUGAR DIAGNOSTIC STRIP TEST SCH ×4 (00:11→18:32)
[2020-11-04] MEDS: INSULIN LISPRO 100 UNITS/ML SUBCUT SCH ×4 (05:37→18:00)
[2020-11-04] MEDS: GUAIFENESIN 200MG/10ML SUGAR FREE UDC PO SCH ×3 (05:37→18:32)
[2020-11-04 07:29] LABS: BASOPHILS % 0.4 % (0.0-2.0); EOSINOPHILS % 1.3 % (0.0-5.0); HEMATOCRIT. 25.3 % (42.0-52.0); HEMOGLOBIN. 8.6 g/dL (14.0-18.0); LYMPHOCYTES % 17.4 % (20.0-50.0); MEAN CORPUSCULAR HEMOGLOBIN 31.8 pg (28.0-32.0); MEAN CORPUSCULAR VOLUME 93.2 fL (80.0-94.0); MEAN PLATELET VOLUME 9.2 fl (7.4-10.4); MONOCYTES % 6.8 % (2.0-8.0); NEUTROPHILS % 74.1 % (40.0-76.0); PLATELET 274 x1000/uL (130-400); RED BLOOD CELL COUNT 2.71 mill/uL (4.7-6.1); RED CELL DISTRIBUTION WIDTH 16.5 % (11.6-14.6)
[2020-11-04 07:33] LABS: PHOSPHORUS 3.7 mg/dL (2.5-4.9)
[2020-11-04] MEDS: LEVOTHYROXINE SODIUM 50MCG TABLET PO SCH (08:05)
[2020-11-04] MEDS: BISACODYL 10MG SUPP PR SCH (09:00)
[2020-11-04] MEDS: AMLODIPINE 5MG TABLET NG SCH (09:00)
[2020-11-04] MEDS: PANTOPRAZOLE SODIUM 40 MG/VIAL IV SCH (09:00)
[2020-11-04] MEDS: BRIMONIDINE 0.2% OPHTH DROPS 5ML BOTHEYE SCH ×2 (09:00→20:28)
[2020-11-04] MEDS: DORZOLAM/TIMOLOL 2.23/0.68% OPHTH DROPS 10ML BOTHEYE SCH ×2 (09:00→20:28)
[2020-11-04] MEDS: GENTAMICIN SULFATE 160 MG in SODIUM CHLORIDE 0.9% 50 ML IV SCH (09:00)
[2020-11-04] MEDS: NYSTATIN POWDER 15GM TOP SCH (09:00)
[2020-11-04] MEDS ORDERED: SORBITOL 70% SOLN 30ML NG NR (11:45)
[2020-11-04] MEDS: NYSTATIN/TRIAMCIN CREAM 15GM TOP SCH ×2 (14:32→23:00)
[2020-11-04] MEDS: DEXTROSE 50% WATER 50ML SYRINGE IV PRN (18:37)
[2020-11-04] MEDS: ATORVASTATIN CALCIUM 10MG TABLET PO SCH (20:28)
[2020-11-04] MEDS: DOXAZOSIN MESYLATE 2MG TABLET PO SCH (20:28)
[2020-11-04] MEDS: INSULIN GLARGINE UD 100 UNITS/ML SYR SUBCUT SCH (22:00)
[2020-11-05] VITALS (10 sets, daily range): BP systolic 99–125; BP diastolic 48–76
[2020-11-05] MEDS: ACETYLCYSTEINE 100MG/ML 10% VIAL 4ML INH SCH ×3 (00:27→15:46)
[2020-11-05] MEDS: IPRATROPIUM/ALBUTEROL 0.5-3(2.5)MG/3ML NEB HHN SCH ×7 (00:27→20:09)
[2020-11-05] MEDS: BLOOD SUGAR DIAGNOSTIC STRIP TEST SCH ×4 (00:50→17:14)
[2020-11-05] MEDS: DEXTROSE 50% WATER 50ML SYRINGE IV PRN ×2 (00:51→08:19)
[2020-11-05] MEDS: GUAIFENESIN 200MG/10ML SUGAR FREE UDC PO SCH ×4 (00:51→17:22)
[2020-11-05] MEDS: NYSTATIN/TRIAMCIN CREAM 15GM TOP SCH ×3 (05:38→21:02)
[2020-11-05] MEDS: INSULIN LISPRO 100 UNITS/ML SUBCUT SCH ×4 (05:59→17:14)
[2020-11-05 06:10] LABS: BASOPHILS % 0.5 % (0.0-2.0); EOSINOPHILS % 1.3 % (0.0-5.0); HEMATOCRIT. 26.1 % (42.0-52.0); HEMOGLOBIN. 8.9 g/dL (14.0-18.0); LYMPHOCYTES % 14.9 % (20.0-50.0); MEAN CORPUSCULAR HEMOGLOBIN 32.2 pg (28.0-32.0); MEAN CORPUSCULAR VOLUME 94.8 fL (80.0-94.0); MEAN PLATELET VOLUME 8.9 fl (7.4-10.4); MONOCYTES % 6.3 % (2.0-8.0); PLATELET 299 x1000/uL (130-400); RED BLOOD CELL COUNT 2.75 mill/uL (4.7-6.1); RED CELL DISTRIBUTION WIDTH 16.6 % (11.6-14.6)
[2020-11-05] MEDS: BRIMONIDINE 0.2% OPHTH DROPS 5ML BOTHEYE SCH ×2 (08:18→21:02)
[2020-11-05] MEDS: LEVOTHYROXINE SODIUM 50MCG TABLET PO SCH (08:18)
[2020-11-05] MEDS: DORZOLAM/TIMOLOL 2.23/0.68% OPHTH DROPS 10ML BOTHEYE SCH ×2 (08:18→21:02)
[2020-11-05] MEDS: PANTOPRAZOLE SODIUM 40 MG/VIAL IV SCH (08:18)
[2020-11-05] MEDS: BISACODYL 10MG SUPP PR SCH (08:19)
[2020-11-05] MEDS: AMLODIPINE 5MG TABLET NG SCH (08:19)
[2020-11-05] MEDS ORDERED: DEXT 5%/0.45% NACL 1000ML 1,000 ML IV SCH (11:00)
[2020-11-05] MEDS ORDERED: CEFAZOLIN 1000MG PREMIX 50 ML IV SCH (17:44)
[2020-11-05] MEDS: ATORVASTATIN CALCIUM 10MG TABLET PO SCH (20:57)
[2020-11-05] MEDS: DOXAZOSIN MESYLATE 2MG TABLET PO SCH (20:58)
[2020-11-05] MEDS ORDERED: BISACODYL 10MG SUPP PR SCH (21:00)
[2020-11-05] MEDS: INSULIN GLARGINE UD 100 UNITS/ML SYR SUBCUT SCH (21:03)
[2020-11-06] VITALS (13 sets, daily range): BP systolic 89–129; BP diastolic 43–66
[2020-11-06] MEDS: BLOOD SUGAR DIAGNOSTIC STRIP TEST SCH ×5 (00:21→23:23)
[2020-11-06] MEDS: DEXT 5%/0.9% NACL 1,000 ML IV SCH ×2 (00:22→23:18)
[2020-11-06] MEDS: GUAIFENESIN 200MG/10ML SUGAR FREE UDC PO SCH ×5 (00:22→23:21)
[2020-11-06] MEDS: IPRATROPIUM/ALBUTEROL 0.5-3(2.5)MG/3ML NEB HHN SCH ×5 (04:43→21:47)
[2020-11-06] MEDS: INSULIN LISPRO 100 UNITS/ML SUBCUT SCH ×5 (05:35→23:23)
[2020-11-06] MEDS: NYSTATIN/TRIAMCIN CREAM 15GM TOP SCH ×3 (05:35→23:25)
[2020-11-06 06:22] LABS: BASOPHILS % 0.5 % (0.0-2.0); EOSINOPHILS % 0.8 % (0.0-5.0); HEMATOCRIT. 26.7 % (42.0-52.0); HEMOGLOBIN. 9.3 g/dL (14.0-18.0); LYMPHOCYTES % 8.7 % (20.0-50.0); MEAN CORPUSCULAR HEMOGLOBIN 32.2 pg (28.0-32.0); MEAN CORPUSCULAR VOLUME 92.6 fL (80.0-94.0); MEAN PLATELET VOLUME 8.5 fl (7.4-10.4); MONOCYTES % 3.2 % (2.0-8.0); NEUTROPHILS % 86.8 % (40.0-76.0); PLATELET 364 x1000/uL (130-400); RED BLOOD CELL COUNT 2.89 mill/uL (4.7-6.1); RED CELL DISTRIBUTION WIDTH 16.4 % (11.6-14.6)
[2020-11-06 06:25] LABS: PROTHROMBIN TIME 11.2 sec (9.6-11.0)
[2020-11-06] MEDS: LEVOTHYROXINE SODIUM 50MCG TABLET PO SCH (07:30)
[2020-11-06] MEDS: BISACODYL 10MG SUPP PR SCH (08:22)
[2020-11-06] MEDS: ACETYLCYSTEINE 100MG/ML 10% VIAL 4ML INH SCH ×2 (08:34→15:13)
[2020-11-06] MEDS: PANTOPRAZOLE SODIUM 40 MG/VIAL IV SCH (08:53)
[2020-11-06] MEDS: BRIMONIDINE 0.2% OPHTH DROPS 5ML BOTHEYE SCH ×2 (08:53→23:19)
[2020-11-06] MEDS: DORZOLAM/TIMOLOL 2.23/0.68% OPHTH DROPS 10ML BOTHEYE SCH ×2 (08:53→23:19)
[2020-11-06] MEDS: AMLODIPINE 5MG TABLET NG SCH ×2 (08:54→09:03)
[2020-11-06] MEDS ORDERED: BACTERIOSTATIC SODIUM CHLORIDE 0.9% 30ML VIAL IJ ONE (09:00)
[2020-11-06] MEDS ORDERED: MIDAZOLAM HCL 5 MG/5 ML VIAL ONE (13:16)
[2020-11-06] MEDS ORDERED: FENTANYL CITRATE/PF 50MCG/ML 2ML VIAL ONE (13:17)
[2020-11-06] MEDS: INSULIN GLARGINE UD 100 UNITS/ML SYR SUBCUT SCH (22:00)
[2020-11-06] MEDS: ATORVASTATIN CALCIUM 10MG TABLET PO SCH (23:21)
[2020-11-06] MEDS: DOXAZOSIN MESYLATE 2MG TABLET PO SCH (23:21)
[2020-11-07] VITALS (14 sets, daily range): BP systolic 89–143; BP diastolic 38–76
[2020-11-07] MEDS: IPRATROPIUM/ALBUTEROL 0.5-3(2.5)MG/3ML NEB HHN SCH ×7 (00:32→23:57)
[2020-11-07 05:58] LABS: BASOPHILS % 0.2 % (0.0-2.0); EOSINOPHILS % 0.8 % (0.0-5.0); HEMATOCRIT. 24.7 % (42.0-52.0); HEMOGLOBIN. 8.3 g/dL (14.0-18.0); LYMPHOCYTES % 7.5 % (20.0-50.0); MEAN CORPUSCULAR HEMOGLOBIN 31.4 pg (28.0-32.0); MEAN CORPUSCULAR VOLUME 93.6 fL (80.0-94.0); MEAN PLATELET VOLUME 8.1 fl (7.4-10.4); MONOCYTES % 4.9 % (2.0-8.0); NEUTROPHILS % 86.6 % (40.0-76.0); PLATELET 366 x1000/uL (130-400); RED BLOOD CELL COUNT 2.64 mill/uL (4.7-6.1); RED CELL DISTRIBUTION WIDTH 16.4 % (11.6-14.6)
[2020-11-07] MEDS: INSULIN LISPRO 100 UNITS/ML SUBCUT SCH ×3 (06:00→18:00)
[2020-11-07] MEDS: BLOOD SUGAR DIAGNOSTIC STRIP TEST SCH ×3 (06:21→18:00)
[2020-11-07] MEDS: GUAIFENESIN 200MG/10ML SUGAR FREE UDC PO SCH ×3 (06:23→18:33)
[2020-11-07] MEDS: AMLODIPINE 5MG TABLET NG SCH (09:00)
[2020-11-07] MEDS ORDERED: ENOXAPARIN 40MG/0.4ML SYR SUBCUT SCH (09:00)
[2020-11-07] MEDS: LEVOTHYROXINE SODIUM 50MCG TABLET PO SCH (10:35)
[2020-11-07] MEDS: BISACODYL 10MG SUPP PR SCH (10:35)
[2020-11-07] MEDS: PANTOPRAZOLE SODIUM 40 MG/VIAL IV SCH (10:35)
[2020-11-07] MEDS: BRIMONIDINE 0.2% OPHTH DROPS 5ML BOTHEYE SCH ×2 (10:37→21:15)
[2020-11-07] MEDS: DORZOLAM/TIMOLOL 2.23/0.68% OPHTH DROPS 10ML BOTHEYE SCH ×2 (10:39→21:15)
[2020-11-07] MEDS ORDERED: POTASSIUM CHLORIDE 20MEQ/PACKET PO SCH (11:00)
[2020-11-07] MEDS: NYSTATIN/TRIAMCIN CREAM 15GM TOP SCH ×2 (18:34→21:16)
[2020-11-07] MEDS: ATORVASTATIN CALCIUM 10MG TABLET PO SCH (21:13)
[2020-11-07] MEDS: DOXAZOSIN MESYLATE 2MG TABLET PO SCH (21:13)
[2020-11-07] MEDS: INSULIN GLARGINE UD 100 UNITS/ML SYR SUBCUT SCH (21:25)
[2020-11-08] VITALS (11 sets, daily range): BP systolic 107–140; BP diastolic 44–69
[2020-11-08] MEDS: BLOOD SUGAR DIAGNOSTIC STRIP TEST SCH ×5 (00:17→23:55)
[2020-11-08] MEDS: GUAIFENESIN 200MG/10ML SUGAR FREE UDC PO SCH ×5 (00:18→23:56)
[2020-11-08] MEDS: IPRATROPIUM/ALBUTEROL 0.5-3(2.5)MG/3ML NEB HHN SCH ×5 (04:10→20:50)
[2020-11-08] MEDS: INSULIN LISPRO 100 UNITS/ML SUBCUT SCH ×5 (05:27→23:55)
[2020-11-08] MEDS: NYSTATIN/TRIAMCIN CREAM 15GM TOP SCH ×3 (05:27→22:13)
[2020-11-08 07:05] LABS: HEMATOCRIT. 27.6 % (42.0-52.0); HEMOGLOBIN. 9.4 g/dL (14.0-18.0); MEAN CORPUSCULAR HEMOGLOBIN 31.6 pg (28.0-32.0); MEAN CORPUSCULAR VOLUME 92.9 fL (80.0-94.0); MEAN PLATELET VOLUME 7.9 fl (7.4-10.4); PLATELET 451 x1000/uL (130-400); RED BLOOD CELL COUNT 2.97 mill/uL (4.7-6.1); RED CELL DISTRIBUTION WIDTH 16.6 % (11.6-14.6)
[2020-11-08] MEDS: LEVOTHYROXINE SODIUM 50MCG TABLET PO SCH (08:05)
[2020-11-08] MEDS: AMLODIPINE 5MG TABLET NG SCH (08:06)
[2020-11-08] MEDS: BISACODYL 10MG SUPP PR SCH (08:06)
[2020-11-08] MEDS: DORZOLAM/TIMOLOL 2.23/0.68% OPHTH DROPS 10ML BOTHEYE SCH ×2 (08:06→22:13)
[2020-11-08] MEDS: PANTOPRAZOLE SODIUM 40 MG/VIAL IV SCH (08:06)
[2020-11-08] MEDS: BRIMONIDINE 0.2% OPHTH DROPS 5ML BOTHEYE SCH ×2 (08:07→22:13)
[2020-11-08] MEDS ORDERED: POTASSIUM CHLORIDE 20MEQ/PACKET PO SCH (09:00)
[2020-11-08 12:33] LABS: PLATELET ESTIMATE INCREASED
[2020-11-08] MEDS: FINASTERIDE 5MG TABLET PO SCH (13:00)
[2020-11-08] MEDS: INSULIN GLARGINE UD 100 UNITS/ML SYR SUBCUT SCH (22:00)
[2020-11-08] MEDS: ATORVASTATIN CALCIUM 10MG TABLET PO SCH (22:12)
[2020-11-08] MEDS: DOXAZOSIN MESYLATE 2MG TABLET PO SCH (22:13)
[2020-11-09] VITALS: BP 129/51
[2020-11-09] MEDS: IPRATROPIUM/ALBUTEROL 0.5-3(2.5)MG/3ML NEB HHN SCH ×6 (00:26→20:23)
[2020-11-09 04:00] VITALS: BP 126/52
[2020-11-09] MEDS: NYSTATIN/TRIAMCIN CREAM 15GM TOP SCH ×3 (05:31→21:32)
[2020-11-09] MEDS: INSULIN LISPRO 100 UNITS/ML SUBCUT SCH ×4 (05:31→23:25)
[2020-11-09] MEDS: GUAIFENESIN 200MG/10ML SUGAR FREE UDC PO SCH ×4 (05:31→23:14)
[2020-11-09] MEDS: BLOOD SUGAR DIAGNOSTIC STRIP TEST SCH ×4 (05:31→23:25)
[2020-11-09 07:16] LABS: HEMATOCRIT. 26.1 % (42.0-52.0); HEMOGLOBIN. 8.6 g/dL (14.0-18.0); MEAN CORPUSCULAR VOLUME 94.3 fL (80.0-94.0); MEAN PLATELET VOLUME 7.7 fl (7.4-10.4); PLATELET 401 x1000/uL (130-400); RED BLOOD CELL COUNT 2.76 mill/uL (4.7-6.1); RED CELL DISTRIBUTION WIDTH 16.4 % (11.6-14.6)
[2020-11-09 07:55] LABS: PHOSPHORUS 3.2 mg/dL (2.5-4.9)
[2020-11-09 08:00] VITALS: BP 103/56
[2020-11-09] MEDS: AMLODIPINE 5MG TABLET NG SCH (09:00)
[2020-11-09] MEDS: FINASTERIDE 5MG TABLET PO SCH (09:27)
[2020-11-09] MEDS: PANTOPRAZOLE SODIUM 40 MG/VIAL IV SCH (09:27)
[2020-11-09] MEDS: BISACODYL 10MG SUPP PR SCH (09:27)
[2020-11-09] MEDS: LEVOTHYROXINE SODIUM 50MCG TABLET PO SCH (09:27)
[2020-11-09] MEDS: DORZOLAM/TIMOLOL 2.23/0.68% OPHTH DROPS 10ML BOTHEYE SCH ×2 (09:29→21:32)
[2020-11-09] MEDS: BRIMONIDINE 0.2% OPHTH DROPS 5ML BOTHEYE SCH ×2 (09:30→21:32)
[2020-11-09 12:00] VITALS: BP 116/58
[2020-11-09] MEDS: POLYETHYLENE GLYCOL 3350 (17GM) 1 DOSE PACK PEG SCH (13:27)
[2020-11-09] MEDS ORDERED: LIDOCAINE HCL 1% 20ML VIAL (Pyxis) INJ INFIL NR (14:00)
[2020-11-09 16:00] VITALS: BP 112/56
[2020-11-09 16:22] LABS: PLATELET ESTIMATE DECREASED
[2020-11-09 20:00] VITALS: BP 131/67
[2020-11-09] MEDS: SENNOSIDES/DOCUSATE SOD 8.6/50MG TABLET PEG SCH (21:32)
[2020-11-09] MEDS: DOXAZOSIN MESYLATE 2MG TABLET PO SCH (21:35)
[2020-11-09] MEDS: ATORVASTATIN CALCIUM 10MG TABLET PO SCH (21:35)
[2020-11-09] MEDS: INSULIN GLARGINE UD 100 UNITS/ML SYR SUBCUT SCH (21:37)
[2020-11-09] MEDS: FLUCONAZOLE 200 MG/100ML BAG 100 ML IV SCH (21:58)
[2020-11-09] MEDS: LINEZOLID 600 MG PREMIX 300 ML IV SCH ×2 (23:00→23:25)
[2020-11-10] VITALS (7 sets, daily range): BP systolic 126–143; BP diastolic 57–66
[2020-11-10] MEDS: IPRATROPIUM/ALBUTEROL 0.5-3(2.5)MG/3ML NEB HHN SCH ×6 (00:13→20:14)
[2020-11-10] MEDS: GUAIFENESIN 200MG/10ML SUGAR FREE UDC PO SCH ×3 (05:32→18:17)
[2020-11-10] MEDS: BLOOD SUGAR DIAGNOSTIC STRIP TEST SCH ×3 (05:32→18:31)
[2020-11-10] MEDS: INSULIN LISPRO 100 UNITS/ML SUBCUT SCH ×3 (05:32→18:00)
[2020-11-10] MEDS: NYSTATIN/TRIAMCIN CREAM 15GM TOP SCH ×3 (05:32→21:37)
[2020-11-10 06:48] LABS: HEMATOCRIT. 24.8 % (42.0-52.0); HEMOGLOBIN. 8.4 g/dL (14.0-18.0); MEAN CORPUSCULAR HEMOGLOBIN 32.6 pg (28.0-32.0); MEAN CORPUSCULAR VOLUME 96.3 fL (80.0-94.0); MEAN PLATELET VOLUME 7.9 fl (7.4-10.4); PLATELET 363 x1000/uL (130-400); RED BLOOD CELL COUNT 2.58 mill/uL (4.7-6.1); RED CELL DISTRIBUTION WIDTH 16.4 % (11.6-14.6)
[2020-11-10] MEDS: LEVOTHYROXINE SODIUM 50MCG TABLET PO SCH (08:55)
[2020-11-10] MEDS: FINASTERIDE 5MG TABLET PO SCH (08:56)
[2020-11-10] MEDS: PANTOPRAZOLE SODIUM 40 MG/VIAL IV SCH (08:56)
[2020-11-10] MEDS: AMLODIPINE 5MG TABLET NG SCH (08:56)
[2020-11-10] MEDS: POLYETHYLENE GLYCOL 3350 (17GM) 1 DOSE PACK PEG SCH (08:56)
[2020-11-10] MEDS: BISACODYL 10MG SUPP PR SCH (08:56)
[2020-11-10] MEDS: BRIMONIDINE 0.2% OPHTH DROPS 5ML BOTHEYE SCH ×2 (09:07→21:36)
[2020-11-10] MEDS: DORZOLAM/TIMOLOL 2.23/0.68% OPHTH DROPS 10ML BOTHEYE SCH ×2 (09:07→21:36)
[2020-11-10] MEDS: LINEZOLID 600 MG PREMIX 300 ML IV SCH ×2 (12:58→22:46)
[2020-11-10] MEDS: CITRIC ACID/SODIUM CITRATE SOLN 30ML UDC PO SCH ×2 (13:06→18:17)
[2020-11-10] MEDS ORDERED: KCL 20MEQ/100ML PREMIX 100 ML IV ONE (13:30)
[2020-11-10 15:26] LABS: PLATELET ESTIMATE NORMAL
[2020-11-10] MEDS: DOXAZOSIN MESYLATE 2MG TABLET PO SCH (21:38)
[2020-11-10] MEDS: ATORVASTATIN CALCIUM 10MG TABLET PO SCH (21:38)
[2020-11-10] MEDS: SENNOSIDES/DOCUSATE SOD 8.6/50MG TABLET PEG SCH (21:38)
[2020-11-10] MEDS: INSULIN GLARGINE UD 100 UNITS/ML SYR SUBCUT SCH (21:58)
[2020-11-10] MEDS: FLUCONAZOLE 200 MG/100ML BAG 100 ML IV SCH (22:45)
[2020-11-11] VITALS (15 sets, daily range): BP systolic 116–141; BP diastolic 51–77
[2020-11-11] MEDS: IPRATROPIUM/ALBUTEROL 0.5-3(2.5)MG/3ML NEB HHN SCH ×6 (00:15→20:07)
[2020-11-11] MEDS: GUAIFENESIN 200MG/10ML SUGAR FREE UDC PO SCH ×5 (01:02→23:17)
[2020-11-11] MEDS: INSULIN LISPRO 100 UNITS/ML SUBCUT SCH ×5 (06:00→23:16)
[2020-11-11] MEDS: BLOOD SUGAR DIAGNOSTIC STRIP TEST SCH ×5 (06:57→23:16)
[2020-11-11] MEDS: NYSTATIN/TRIAMCIN CREAM 15GM TOP SCH ×3 (06:57→22:11)
[2020-11-11 07:06] LABS: HEMATOCRIT. 25.7 % (42.0-52.0); HEMOGLOBIN. 8.6 g/dL (14.0-18.0); MEAN CORPUSCULAR HEMOGLOBIN 31.3 pg (28.0-32.0); MEAN CORPUSCULAR VOLUME 93.3 fL (80.0-94.0); MEAN PLATELET VOLUME 7.3 fl (7.4-10.4); PLATELET 345 x1000/uL (130-400); RED BLOOD CELL COUNT 2.75 mill/uL (4.7-6.1); RED CELL DISTRIBUTION WIDTH 16.7 % (11.6-14.6)
[2020-11-11] MEDS ORDERED: POTASSIUM CHLORIDE 20MEQ/PACKET PO SCH (09:00)
[2020-11-11] MEDS: LEVOTHYROXINE SODIUM 50MCG TABLET PO SCH (09:02)
[2020-11-11] MEDS: PANTOPRAZOLE SODIUM 40 MG/VIAL IV SCH (09:02)
[2020-11-11] MEDS: POLYETHYLENE GLYCOL 3350 (17GM) 1 DOSE PACK PEG SCH (09:02)
[2020-11-11] MEDS: BISACODYL 10MG SUPP PR SCH (09:02)
[2020-11-11] MEDS: CITRIC ACID/SODIUM CITRATE SOLN 30ML UDC PO SCH ×3 (09:02→17:31)
[2020-11-11] MEDS: DORZOLAM/TIMOLOL 2.23/0.68% OPHTH DROPS 10ML BOTHEYE SCH ×2 (09:03→21:58)
[2020-11-11] MEDS: AMLODIPINE 5MG TABLET NG SCH (09:03)
[2020-11-11] MEDS: BRIMONIDINE 0.2% OPHTH DROPS 5ML BOTHEYE SCH ×2 (09:03→21:58)
[2020-11-11] MEDS: FINASTERIDE 5MG TABLET PO SCH (09:08)
[2020-11-11] MEDS: LINEZOLID 600 MG PREMIX 300 ML IV SCH ×2 (17:31→22:04)
[2020-11-11 18:39] LABS: PLATELET ESTIMATE NORMAL
[2020-11-11] MEDS ORDERED: POTASSIUM CHLORIDE 20MEQ/PACKET PO NR (21:00)
[2020-11-11] MEDS: SENNOSIDES/DOCUSATE SOD 8.6/50MG TABLET PEG SCH (21:03)
[2020-11-11] MEDS: ATORVASTATIN CALCIUM 10MG TABLET PO SCH (21:04)
[2020-11-11] MEDS: DOXAZOSIN MESYLATE 2MG TABLET PO SCH (21:05)
[2020-11-11] MEDS: FLUCONAZOLE 200 MG/100ML BAG 100 ML IV SCH (21:05)
[2020-11-11] MEDS: INSULIN GLARGINE UD 100 UNITS/ML SYR SUBCUT SCH (22:11)
[2020-11-12] VITALS (18 sets, daily range): BP systolic 120–148; BP diastolic 51–72
[2020-11-12] MEDS: IPRATROPIUM/ALBUTEROL 0.5-3(2.5)MG/3ML NEB HHN SCH ×4 (00:52→12:38)
[2020-11-12] MEDS: NYSTATIN/TRIAMCIN CREAM 15GM TOP SCH ×2 (05:18→15:55)
[2020-11-12] MEDS: BLOOD SUGAR DIAGNOSTIC STRIP TEST SCH ×2 (05:19→12:00)
[2020-11-12] MEDS: GUAIFENESIN 200MG/10ML SUGAR FREE UDC PO SCH ×2 (05:19→12:19)
[2020-11-12] MEDS: INSULIN LISPRO 100 UNITS/ML SUBCUT SCH ×2 (05:19→12:00)
[2020-11-12 07:15] LABS: HEMATOCRIT. 24.7 % (42.0-52.0); HEMOGLOBIN. 8.3 g/dL (14.0-18.0); MEAN CORPUSCULAR HEMOGLOBIN 31.3 pg (28.0-32.0); MEAN PLATELET VOLUME 7.3 fl (7.4-10.4); PLATELET 343 x1000/uL (130-400); RED BLOOD CELL COUNT 2.65 mill/uL (4.7-6.1); RED CELL DISTRIBUTION WIDTH 16.4 % (11.6-14.6)
[2020-11-12 07:36] LABS: CHLORIDE 115 mEq/L (98-107)
[2020-11-12] MEDS: LEVOTHYROXINE SODIUM 50MCG TABLET PO SCH (08:35)
[2020-11-12] MEDS: CITRIC ACID/SODIUM CITRATE SOLN 30ML UDC PO SCH ×2 (08:35→13:00)
[2020-11-12] MEDS: POLYETHYLENE GLYCOL 3350 (17GM) 1 DOSE PACK PEG SCH (08:35)
[2020-11-12] MEDS: FINASTERIDE 5MG TABLET PO SCH (08:35)
[2020-11-12] MEDS: AMLODIPINE 5MG TABLET NG SCH (08:35)
[2020-11-12] MEDS: PANTOPRAZOLE SODIUM 40 MG/VIAL IV SCH (08:36)
[2020-11-12] MEDS: DORZOLAM/TIMOLOL 2.23/0.68% OPHTH DROPS 10ML BOTHEYE SCH (08:36)
[2020-11-12] MEDS: BRIMONIDINE 0.2% OPHTH DROPS 5ML BOTHEYE SCH (08:37)
[2020-11-12] MEDS: BISACODYL 10MG SUPP PR SCH (08:37)
[2020-11-12] MEDS: LINEZOLID 600 MG PREMIX 300 ML IV SCH (11:50)
[2020-11-12 14:18] LABS: PLATELET ESTIMATE NORMAL
== END 2020-11-12 17:15 | DRG 710 ==
LOC: ER 12:48 → 6WST 16:26 → EDBEDREQ 16:32 → EDBEDREQTM 16:32 → EDBEDREQSVC 16:32 → ENRESERV 20:38 → MICUNO 10-18 13:30 → 5EST 10-30 12:02
PROVIDERS: ADMIT Internal Medicine; ATTEND Internal Medicine
PROC: 041N09Q Bypass Left Popliteal Artery to Lower Extremity Artery with Autologous Venous Tissue, Open Approach (ICD-10-PCS; principal; 2020-10-16)
PROC: 06BQ0ZZ Excision of Left Saphenous Vein, Open Approach (ICD-10-PCS; 2020-10-16)
PROC: 04CS0ZZ Extirpation of Matter from Left Posterior Tibial Artery, Open Approach (ICD-10-PCS; 2020-10-16)
PROC: 5A1955Z Respiratory Ventilation, Greater than 96 Consecutive Hours (ICD-10-PCS; 2020-10-18)
PROC: 0BH17EZ Insertion of Endotracheal Airway into Trachea, Via Natural or Artificial Opening (ICD-10-PCS; 2020-10-18)
PROC: 4A10X4Z Monitoring of Central Nervous Electrical Activity, External Approach (ICD-10-PCS; 2020-10-21)
PROC: 4A10X4Z Monitoring of Central Nervous Electrical Activity, External Approach (ICD-10-PCS; 2020-10-28)
PROC: 30233N1 Transfusion of Nonautologous Red Blood Cells into Peripheral Vein, Percutaneous Approach (ICD-10-PCS; 2020-10-31)
PROC: 0JBR0ZZ Excision of Left Foot Subcutaneous Tissue and Fascia, Open Approach (ICD-10-PCS; 2020-11-04)
PROC: 0DH63UZ Insertion of Feeding Device into Stomach, Percutaneous Approach (ICD-10-PCS; 2020-11-06)
PROC: 0JBR0ZZ Excision of Left Foot Subcutaneous Tissue and Fascia, Open Approach (ICD-10-PCS; 2020-11-09)
PROC: 0JBR0ZZ Excision of Left Foot Subcutaneous Tissue and Fascia, Open Approach (ICD-10-PCS; 2020-11-09)
PROC: 0JBR0ZZ Excision of Left Foot Subcutaneous Tissue and Fascia, Open Approach (ICD-10-PCS; 2020-11-09)
DX: A41.59 Other Gram-negative sepsis (principal); J69.0 Pneumonitis due to inhalation of food and vomit; N17.0 Acute kidney failure with tubular necrosis; R65.21 Severe sepsis with septic shock; J96.01 Acute respiratory failure with hypoxia; G92 Toxic encephalopathy; J15.6 Pneumonia due to other Gram-negative bacteria; K22.10 Ulcer of esophagus without bleeding; E46 Unspecified protein-calorie malnutrition; E87.2 Acidosis; I48.19 Other persistent atrial fibrillation; E11.22 Type 2 diabetes mellitus with diabetic chronic kidney disease; M86.172 Other acute osteomyelitis, left ankle and foot; E11.40 Type 2 diabetes mellitus with diabetic neuropathy, unspecified; E11.51 Type 2 diabetes mellitus with diabetic peripheral angiopathy without gangrene; E11.621 Type 2 diabetes mellitus with foot ulcer; I70.92 Chronic total occlusion of artery of the extremities; F03.90 Unspecified dementia, unspecified severity, without behavioral disturbance, psychotic disturbance, mood disturbance, and anxiety; E11.69 Type 2 diabetes mellitus with other specified complication; E87.6 Hypokalemia; I44.0 Atrioventricular block, first degree; I71.9 Aortic aneurysm of unspecified site, without rupture; L97.429 Non-pressure chronic ulcer of left heel and midfoot with unspecified severity; I44.7 Left bundle-branch block, unspecified; E03.9 Hypothyroidism, unspecified; E87.1 Hypo-osmolality and hyponatremia; E87.5 Hyperkalemia; I13.10 Hypertensive heart and chronic kidney disease without heart failure, with stage 1 through stage 4 chronic kidney disease, or unspecified chronic kidney disease; N40.0 Benign prostatic hyperplasia without lower urinary tract symptoms; R13.12 Dysphagia, oropharyngeal phase; R62.7 Adult failure to thrive; N28.1 Cyst of kidney, acquired; N18.9 Chronic kidney disease, unspecified; K59.00 Constipation, unspecified; L02.612 Cutaneous abscess of left foot; K44.9 Diaphragmatic hernia without obstruction or gangrene; B36.9 Superficial mycosis, unspecified; D64.9 Anemia, unspecified; K29.70 Gastritis, unspecified, without bleeding; D68.59 Other primary thrombophilia; M86.8X7 Other osteomyelitis, ankle and foot; F41.9 Anxiety disorder, unspecified; Z20.822 Contact with and (suspected) exposure to COVID-19; J44.0 Chronic obstructive pulmonary disease with (acute) lower respiratory infection; R26.89 Other abnormalities of gait and mobility; Z86.73 Personal history of transient ischemic attack (TIA), and cerebral infarction without residual deficits; Z79.899 Other long term (current) drug therapy; Z79.4 Long term (current) use of insulin; Z87.01 Personal history of pneumonia (recurrent); Z89.511 Acquired absence of right leg below knee; Z93.1 Gastrostomy status; Z98.62 Peripheral vascular angioplasty status; Z99.3 Dependence on wheelchair; Z68.32 Body mass index [BMI] 32.0-32.9, adult
CPT/HCPCS: 36415; 36600; 70551; 71045; 73620; 74018; 76705; 76770; 80048; 80053; 80202; 81003; 82040; 82140; 82375; 82550; 82607; 82746; 82805; 82962; 83036; 83605; 83735; 84100; 84134; 84145; 84439; 84443; 84478; 84481; 84484; 85025; 85651; 86141; 86850; 86900; 86920; 87070; 87077; 87186; 87426; 90732; 92610; 93005; 93306; 94003; 94640; 94667; 97161; 97165; 99285; A6261; C1884; C9113; J0330; J0360; J0461; J0690; J0692; J1450; J1580; J1644; J1650; J1815; J1956; J2020; J2250; J2270; J2370; J2405; J2543; J2704; J3010; J3370; J3475; J3480; J3490; J7030; J7040; J7042; J7060; J7608; P9016; P9041; A4315

== ENCOUNTER 2020-12-16 13:35 | Emergency (ER) | payer MEDICARE, MEDICAID ==
[~2020-12-16] VITALS: Ht 172.7 cm; Wt 73.0 kg
[2020-12-16] MEDS ORDERED: DIATR MEGLU/DIATRIZOATE SOLN 30ML ONE (16:45)
[2020-12-16 18:20] VITALS: BP 174/95
== END 2020-12-16 18:56 | disposition home or self-care (01) ==
LOC: ER 14:04
DX: Z43.1 Encounter for attention to gastrostomy (principal); F03.90 Unspecified dementia, unspecified severity, without behavioral disturbance, psychotic disturbance, mood disturbance, and anxiety; I10 Essential (primary) hypertension; E11.9 Type 2 diabetes mellitus without complications; Z79.82 Long term (current) use of aspirin; Z79.899 Other long term (current) drug therapy
CPT/HCPCS: 43762; 74018; 99284; Q9963

== ENCOUNTER → 2021-03-11 | Day surgery (SDC) | payer MEDICARE, MEDICAID ==
[~2021-03-11] MED LIST changes: +LIDOCAINE HCL 1% 30ML VIAL (10MG/ML) ONE
== END | disposition home or self-care (01) ==
LOC: RADANGIO 10:24
PROVIDERS: ATTEND Podiatrist Foot & Ankle Surgery
DX: Z45.2 Encounter for adjustment and management of vascular access device (principal); M86.8X8 Other osteomyelitis, other site; Z79.82 Long term (current) use of aspirin; Z79.4 Long term (current) use of insulin; Z79.899 Other long term (current) drug therapy; Z98.890 Other specified postprocedural states; Z82.49 Family history of ischemic heart disease and other diseases of the circulatory system
CPT/HCPCS: 36573; C1725; J3490; J7040

== ENCOUNTER 2021-10-12 17:54 | Inpatient (IN) | payer MEDICARE, OTHER ==
[~2021-10-12] VITALS: Ht 172.7 cm; Wt 81.2 kg
[~2021-10-12 17:54] MED LIST changes: -LIDOCAINE HCL 1% 30ML VIAL (10MG/ML) ONE
[2021-10-12] MEDS ORDERED: TRAZ-251 PO (18:34)
[2021-10-12] MEDS ORDERED: SODIUM CHLORIDE 0.9% 1,000 ML IV ONE (19:15)
[2021-10-12] MEDS ORDERED: CEFTRIAXONE 1 G PREMIX 50 ML IV ONE (19:15)
[2021-10-12] MEDS ORDERED: VANCOMYCIN 1G PREMIX 200 ML IV ONE (19:15)
[2021-10-12 19:45] LABS: BASOPHILS % 0.3 % (0.0-2.0); EOSINOPHILS % 2.6 % (0.0-5.0); HEMATOCRIT. 26.2 % (42.0-52.0); HEMOGLOBIN. 8.8 g/dL (14.0-18.0); LYMPHOCYTES % 22.6 % (20.0-50.0); MEAN PLATELET VOLUME 7.4 fl (7.4-10.4); MONOCYTES % 5.7 % (2.0-8.0); NEUTROPHILS % 68.8 % (40.0-76.0); PLATELET 422 x1000/uL (130-400); RED BLOOD CELL COUNT 3.04 mill/uL (4.7-6.1); RED CELL DISTRIBUTION WIDTH 14.9 % (11.6-14.6)
[2021-10-12 19:50] LABS: CHLORIDE 107 mEq/L (98-107)
[2021-10-12] MEDS ORDERED: ACETAMINOPHEN 325MG TABLET PO ONE (22:15)
[2021-10-12] MEDS ORDERED: CEFTRIAXONE 1 G PREMIX 50 ML IV NR (22:45)
[2021-10-12] MEDS ORDERED: VANCOMYCIN 1G PREMIX 200 ML IV NR (22:45)
[2021-10-13] VITALS (8 sets, daily range): BP systolic 118–169; BP diastolic 68–85
[2021-10-13] MEDS ORDERED: DEXTROSE 50% WATER 50ML SYRINGE IV PRN (00:45)
[2021-10-13] MEDS: SODIUM CHLORIDE 0.9% 1,000 ML IV SCH ×2 (01:31→14:05)
[2021-10-13] MEDS: BLOOD SUGAR DIAGNOSTIC STRIP TEST SCH ×4 (01:48→17:41)
[2021-10-13] MEDS ORDERED: INSULIN GLARGINE 100 UNITS/ML SUBCUT NR (02:00)
[2021-10-13] MEDS ORDERED: INSULIN LISPRO 100 UNITS/ML SUBCUT NR (02:00)
[2021-10-13] MEDS: INSULIN LISPRO 100 UNITS/ML SUBCUT SCH ×3 (07:00→17:52)
[2021-10-13] MEDS ORDERED: ASPIRIN 81MG TABLET PO SCH (09:00)
[2021-10-13] MEDS ORDERED: DOCUSATE SODIUM 250MG CAPSULE PO SCH (09:00)
[2021-10-13] MEDS ORDERED: LACTULOSE 20G/30ML UDC PO PRN (09:15)
[2021-10-13] MEDS: FERROUS SULFATE 325MG TABLET PO SCH ×2 (09:29→17:47)
[2021-10-13] MEDS ORDERED: INSULIN GLARGINE 100 UNITS/ML SUBCUT SCH (10:00)
[2021-10-13] MEDS ORDERED: BRIMONIDINE 0.2% OPHTH DROPS 5ML EACHEYE SCH (21:00)
[2021-10-13] MEDS ORDERED: ATORVASTATIN CALCIUM 10MG TABLET PO SCH (21:00)
[2021-10-13] MEDS ORDERED: DORZOLAM/TIMOLOL 2.23/0.68% OPHTH DROPS 10ML BOTHEYE SCH (21:00)
[2021-10-13] MEDS ORDERED: LOSARTAN POTASSIUM 100 MG TABLET PO SCH (21:00)
== END 2021-10-13 20:15 | disposition short-term general hospital (02) | DRG 344 ==
LOC: ER 17:54 → 6EST 21:27 → EDBEDREQTM 21:35 → EDBEDREQ 21:35 → ENRESERV 21:58
PROVIDERS: ADMIT Internal Medicine; ATTEND Internal Medicine
DX: E11.69 Type 2 diabetes mellitus with other specified complication (principal); M86.172 Other acute osteomyelitis, left ankle and foot; E43 Unspecified severe protein-calorie malnutrition; E11.51 Type 2 diabetes mellitus with diabetic peripheral angiopathy without gangrene; L97.429 Non-pressure chronic ulcer of left heel and midfoot with unspecified severity; G30.9 Alzheimer's disease, unspecified; F02.80 Dementia in other diseases classified elsewhere, unspecified severity, without behavioral disturbance, psychotic disturbance, mood disturbance, and anxiety; E03.9 Hypothyroidism, unspecified; D64.9 Anemia, unspecified; L97.529 Non-pressure chronic ulcer of other part of left foot with unspecified severity; E78.5 Hyperlipidemia, unspecified; N40.0 Benign prostatic hyperplasia without lower urinary tract symptoms; R26.81 Unsteadiness on feet; Z68.27 Body mass index [BMI] 27.0-27.9, adult; F32.A Depression, unspecified; I10 Essential (primary) hypertension; I25.10 Atherosclerotic heart disease of native coronary artery without angina pectoris; I48.91 Unspecified atrial fibrillation; M85.80 Other specified disorders of bone density and structure, unspecified site; Z86.73 Personal history of transient ischemic attack (TIA), and cerebral infarction without residual deficits; Z89.511 Acquired absence of right leg below knee; Z93.1 Gastrostomy status; Z99.3 Dependence on wheelchair; Z82.49 Family history of ischemic heart disease and other diseases of the circulatory system; Z83.3 Family history of diabetes mellitus
CPT/HCPCS: 36415; 73630; 74018; 80053; 82962; 83036; 83605; 85025; 99285; J0696; J1815; J3370; J7030